=== PATIENT | female | born 1950 | race Caucasian/White ===

== ENCOUNTER → 2019-02-04 | Outpatient (CLI) | payer MEDICARE, MEDICAID ==
[~2019-02-04] MED LIST: AML5T PO; ATEN-60 PO; ATOR1TAB PO; CHOL1000T PO; ESCI10TA PO; FERR-20 PO; GABA-339 PO; HYDR-392 PO; NORT25CA PO
[2019-02-04 16:34] LABS: Urine Blood Negative /uL (Negative); Urine Specific Gravity 1.008 (1.001-1.035)
[2019-02-04 16:38] LABS: Basophils # (auto) 0 uL; Basophils % (auto) 0.4 % (0.0-2.0); Eosinophils # (auto) 0.3 uL; Eosinophils % (auto) 3.4 % (0.0-7.0); Hematocrit 26.9 % (36.0-46.0); Lymphocytes # (auto) 1.9 uL; Lymphocytes % (auto) 22.9 % (10.0-50.0); Mean Corpuscular Hemoglobin 29.7 pg (28.0-32.0); Mean Corpuscular Hgb Conc. 33.6 g/dL (32.0-36.0); Mean Corpuscular Volume 88.3 fL (80.0-100.0); Monocytes # (auto) 0.7 uL; Monocytes % (auto) 8.7 % (0.0-12.0); Neutrophils # (auto) 5.5 uL; Neutrophils % (auto) 64.6 % (37.0-80.0); Platelet Count (auto) 205 10^3/uL (140-450); Red Blood Cells 3.05 10^6/uL (4.0-5.20); Red Cell Distribution Width 15.5 % (11.8-14.3); White Blood Cell 8.5 10^3/uL (4.4-10.8)
[2019-02-04 16:53] LABS: Albumin 3.7 g/dL (3.4-5.0); Calcium 9.2 mg/dL (8.5-10.1); Potassium 3.2 mmol/L (3.5-5.1)
[2019-02-04 16:58] LABS: BUN/Creatinine Ratio 12.8; Bilirubin, Total 0.6 mg/dL (0.2-1.0); Total Protein 7.2 g/dL (6.4-8.2)
[2019-02-04 17:03] LABS: Folate (Folic Acid) > 24.00 ng/mL (5.38-24)
== END | disposition home or self-care (01) ==
LOC: LAB 16:03
PROVIDERS: ATTEND Internal Medicine
DX: D64.9 Anemia, unspecified (principal); E78.5 Hyperlipidemia, unspecified; I13.0 Hypertensive heart and chronic kidney disease with heart failure and stage 1 through stage 4 chronic kidney disease, or unspecified chronic kidney disease; E11.22 Type 2 diabetes mellitus with diabetic chronic kidney disease; I50.9 Heart failure, unspecified; N18.3 Chronic kidney disease, stage 3 (moderate); R82.998 Other abnormal findings in urine
CPT/HCPCS: 36415; 80053; 80061; 81003; 82043; 82607; 82746; 85025; 87086; 87088; 87186

== ENCOUNTER → 2019-02-19 | Outpatient (CLI) | payer MEDICARE, MEDICAID ==
[2019-02-19 08:56] LABS: Basophils # (auto) 0.1 uL; Basophils % (auto) 0.8 % (0.0-2.0); Eosinophils # (auto) 0.2 uL; Hematocrit 28.9 % (36.0-46.0); Hemoglobin 9.7 g/dL (12.2-16.2); Lymphocytes # (auto) 1.4 uL; Lymphocytes % (auto) 18.9 % (10.0-50.0); Mean Corpuscular Hemoglobin 29.9 pg (28.0-32.0); Mean Corpuscular Hgb Conc. 33.4 g/dL (32.0-36.0); Mean Corpuscular Volume 89.3 fL (80.0-100.0); Monocytes # (auto) 0.8 uL; Monocytes % (auto) 10.5 % (0.0-12.0); Neutrophils # (auto) 5.1 uL; Neutrophils % (auto) 66.8 % (37.0-80.0); Platelet Count (auto) 263 10^3/uL (140-450); Red Blood Cells 3.23 10^6/uL (4.0-5.20); Red Cell Distribution Width 15.9 % (11.8-14.3); Urine Blood Negative /uL (Negative); Urine Specific Gravity 1.009 (1.001-1.035); White Blood Cell 7.7 10^3/uL (4.4-10.8)
[2019-02-19 09:15] LABS: Creatinine, Urine 47 mg/dL (30.0-125.0); Protein, Urine 55.3 mg/dL (0.0-11.9)
[2019-02-19 11:02] LABS: Albumin 3.7 g/dL (3.4-5.0); Calcium 9.1 mg/dL (8.5-10.1); Potassium 3.6 mmol/L (3.5-5.1)
[2019-02-19 11:09] LABS: BUN/Creatinine Ratio 11.4; Phosphorus 3.7 mg/dL (2.5-4.90); Uric Acid 6.8 mg/dL (2.6-6.0)
== END | disposition home or self-care (01) ==
LOC: LAB 08:09
PROVIDERS: ATTEND Internal Medicine Nephrology
DX: N39.0 Urinary tract infection, site not specified (principal); M10.9 Gout, unspecified; I13.0 Hypertensive heart and chronic kidney disease with heart failure and stage 1 through stage 4 chronic kidney disease, or unspecified chronic kidney disease; I50.43 Acute on chronic combined systolic (congestive) and diastolic (congestive) heart failure; D63.1 Anemia in chronic kidney disease; N18.3 Chronic kidney disease, stage 3 (moderate); E78.5 Hyperlipidemia, unspecified; E55.9 Vitamin D deficiency, unspecified; R80.9 Proteinuria, unspecified; E21.3 Hyperparathyroidism, unspecified
CPT/HCPCS: 36415; 80061; 80069; 81003; 82306; 82570; 84156; 84550; 85025

== ENCOUNTER 2019-09-10 11:59 | Emergency (ER) | payer MEDICARE, MEDICAID ==
[~2019-09-10] VITALS: Ht 162.6 cm; Wt 61.2 kg
[~2019-09-10 11:59] MED LIST changes: -CHOL1000T PO; +[UNRECOGNIZED DRUG - CODE] PO
[2019-09-10] MEDS ORDERED: ONDANSETRON HCL 4 MG/2 ML VIAL IV ONE (12:30)
[2019-09-10 14:19] LABS: Albumin 2.7 g/dL (3.4-5.0); Calcium 9.7 mg/dL (8.5-10.1); Magnesium 2.1 mg/dL (1.6-2.6)
[2019-09-10 14:23] LABS: Bilirubin, Total 0.3 mg/dL (0.2-1.0); Total Protein 6.5 g/dL (6.4-8.2)
[2019-09-10 14:26] LABS: BUN/Creatinine Ratio 11.6; Potassium 5.7 mmol/L (3.5-5.1)
[2019-09-10] MEDS ORDERED: SODIUM ZIRCONIUM CYCL 10 GM PAK PO ONE ×2 (15:00→15:15)
[2019-09-10] MEDS ORDERED: FUROSEMIDE 40 MG/4 ML VIAL IV ONE (15:00)
[2019-09-10] MEDS ORDERED: SODIUM CHLORIDE 0.9% 500 ML IV ONE (15:00)
[2019-09-10] MEDS ORDERED: InsuLIN REG 1unit/0.01ml Soln (100units/ml) SC ONE (15:00)
[2019-09-10] MEDS ORDERED: DEXTROSE (50%) 50ML SYRG IV ONE (15:00)
[2019-09-10] MEDS ORDERED: CLINDAMYCIN 900MG IV 50 ML IV ONE (15:15)
[2019-09-10] MEDS ORDERED: LEVOFLOXACIN 250MG 50 ML IV ONE (15:15)
[2019-09-10] MEDS ORDERED: SODIUM BICARBONATE 8.4 % INJ 50ML VIAL IV ONE (19:30)
[2019-09-10] MEDS ORDERED: CALCIUM CHL 100MG/ML 500 MG in D5W 5% 100 ML IV ONE (19:30)
[2019-09-10 20:42] LABS: Basophils # (auto) 0.1 uL; Basophils % (auto) 0.5 % (0.0-2.0); Eosinophils # (auto) 0 uL; Eosinophils % (auto) 0.1 % (0.0-7.0); Hematocrit 29.2 % (36.0-46.0); Hemoglobin 9.1 g/dL (12.2-16.2); Lymphocytes # (auto) 2.4 uL; Lymphocytes % (auto) 9.9 % (10.0-50.0); Mean Corpuscular Hemoglobin 28.9 pg (28.0-32.0); Mean Corpuscular Hgb Conc. 31.1 g/dL (32.0-36.0); Monocytes # (auto) 2.7 uL; Neutrophils # (auto) 19.4 uL; Neutrophils % (auto) 78.5 % (37.0-80.0); Nucleated Red Blood Cells % 0.1 %; Platelet Count (auto) 238 10^3/uL (140-450); Red Blood Cells 3.14 10^6/uL (4.0-5.20); Red Cell Distribution Width 15.9 % (11.8-14.3); White Blood Cell 24.7 10^3/uL (4.4-10.8)
[2019-09-10 21:30] VITALS: BP 140/61
== END 2019-09-10 21:42 | disposition short-term general hospital (02) ==
LOC: ER 11:59 → EDBD 11:59 → ER 21:42
DX: I13.2 Hypertensive heart and chronic kidney disease with heart failure and with stage 5 chronic kidney disease, or end stage renal disease (principal); E11.22 Type 2 diabetes mellitus with diabetic chronic kidney disease; N18.6 End stage renal disease; I50.9 Heart failure, unspecified; E87.5 Hyperkalemia; M86.9 Osteomyelitis, unspecified; R11.2 Nausea with vomiting, unspecified; J44.9 Chronic obstructive pulmonary disease, unspecified; I25.2 Old myocardial infarction
CPT/HCPCS: 36415; 71045; 74176; 80053; 83690; 83735; 84484; 85025; 93005; 96361; 96365; 96367; 96368; 96372; 99285; J1815; J1940; J1956; J2405; J3490; J7040; J7042; J7060

== ENCOUNTER 2020-02-18 16:42 | Inpatient (IN) | payer MEDICARE, MEDICAID ==
[~2020-02-18] VITALS: Ht 157.5 cm; Wt 85.9 kg
[2020-02-18 17:43] LABS: Basophils # (auto) 0.1 10 ^3/uL (0-0.2); Basophils % (auto) 0.7 % (0.0-2.0); Eosinophils # (auto) 0.2 10 ^3/uL (0-0.8); Hematocrit 36.2 % (36.0-46.0); Hemoglobin 11.5 g/dL (12.2-16.2); Lymphocytes # (auto) 1.3 10 ^3/uL (0.4-5.4); Lymphocytes % (auto) 17.2 % (10.0-50.0); Mean Corpuscular Hemoglobin 30.1 pg (28.0-32.0); Mean Corpuscular Hgb Conc. 31.7 g/dL (32.0-36.0); Monocytes # (auto) 0.8 10 ^3/uL (0-1.3); Monocytes % (auto) 11.1 % (0.0-12.0); Neutrophils # (auto) 5.1 10 ^3/uL (1.6-8.6); Nucleated Red Blood Cells % 0.1 %; Platelet Count (auto) 174 10^3/uL (140-450); Red Blood Cells 3.81 10^6/uL (4.0-5.20); Red Cell Distribution Width 16.7 % (11.8-14.3); White Blood Cell 7.5 10^3/uL (4.4-10.8)
[2020-02-18 18:00] LABS: Albumin 3.2 g/dL (3.4-5.0); Calcium 8.9 mg/dL (8.5-10.1)
[2020-02-18 18:05] LABS: BUN/Creatinine Ratio 9.9; Bilirubin, Total 0.4 mg/dL (0.2-1.0); Total Protein 7.3 g/dL (6.4-8.2)
[2020-02-18 18:12] LABS: Potassium 6.2 mmol/L (3.5-5.1)
[2020-02-18] MEDS ORDERED: SODIUM BICARBONATE 8.4 % INJ 50ML VIAL IV ONE (18:45)
[2020-02-18] MEDS ORDERED: ALBUTEROL SULF 2.5 MG/0.5ML(0.5%) NEB SOLN HHN ONE (18:45)
[2020-02-18] MEDS ORDERED: CALCIUM GLUC 4.65meq/50ml D5AE 50 ML IV ONE (18:45)
[2020-02-18] MEDS ORDERED: InsuLIN REG 1unit/0.01ml Soln (100units/ml) IV ONE (19:45)
[2020-02-18] MEDS ORDERED: SODIUM ZIRCONIUM CYCL 10 GM PAK PO ONE (19:45)
[2020-02-18] MEDS ORDERED: DEXTROSE (50%) 50ML SYRG IV ONE (19:45)
[2020-02-18] MEDS ORDERED: FUROSEMIDE 100 MG/10ML VIAL IV ONE (20:00)
[2020-02-18] MEDS ORDERED: SODIUM BICARBONATE 8.4% INJ 50ML SYRINGE ONE (20:00)
[2020-02-18] MEDS ORDERED: HYDROcodone-ACET 7.5/325MG TAB PO PRN (20:00)
[2020-02-18] MEDS ORDERED: MORPHINE SULF INJ 2 MG/ML SYRINGE 1ML IV PRN (20:00)
[2020-02-18] MEDS ORDERED: NITROGLYCERIN 0.4 MG SL TAB SL PRN (20:00)
[2020-02-18] MEDS ORDERED: FUROSEMIDE 40 MG/4 ML VIAL ONE (20:01)
[2020-02-18 22:00] VITALS: BP 139/66
[2020-02-18] MEDS ORDERED: ATORVASTATIN 20 MG TAB PO SCH (22:00)
[2020-02-18] MEDS ORDERED: GABAPENTIN 300 MG CAP PO SCH (22:00)
[2020-02-18] MEDS ORDERED: FAMOTIDINE 20 MG TAB PO SCH (22:00)
[2020-02-18] MEDS ORDERED: NORTRIPTYLINE HCL 25 MG CAP PO SCH (22:00)
[2020-02-18 23:46] LABS: Anion Gap 12 (5-15); BUN/Creatinine Ratio 9.9; Blood Urea Nitrogen 50 mg/dL (7-18); Calcium 8.3 mg/dL (8.5-10.1); Carbon Dioxide 20 mmol/L (21-32); Chloride 104 mmol/L (98-107); GFR African American 11 mL/min; GFR Non-African American 9 mL/min; Glucose 172 mg/dL (74-106); Potassium 4.7 mmol/L (3.5-5.1); Sodium 136 mmol/L (136-145)
[2020-02-19] VITALS (7 sets, daily range): BP systolic 96–157; BP diastolic 52–79
[2020-02-19 06:45] LABS: Potassium 5.2 mmol/L (3.5-5.1)
[2020-02-19 06:49] LABS: Albumin 3.1 g/dL (3.4-5.0); BUN/Creatinine Ratio 11.1; Bilirubin, Total 0.6 mg/dL (0.2-1.0); Calcium 8.7 mg/dL (8.5-10.1); Total Protein 7.2 g/dL (6.4-8.2)
[2020-02-19] MEDS: FERROUS SULFATE 325 MG TAB PO SCH ×2 (07:45→17:46)
[2020-02-19] MEDS: CHOLECALCIFEROL (VITD3) 1,000IU=25mCg TAB PO SCH (09:26)
[2020-02-19] MEDS: ATENOLOL 25 MG TAB PO SCH (09:26)
[2020-02-19] MEDS: amLODIPine BESYLATE 5 MG TAB PO SCH (09:26)
[2020-02-19] MEDS ORDERED: ESCITALOPRAM OXALATE 10 MG PO SCH (10:00)
[2020-02-19] MEDS ORDERED: SODIUM CHL 0.9% 1000 ML BAG XX ONE (13:45)
[2020-02-19] MEDS ORDERED: ASP81EC PO (14:09)
[2020-02-19] MEDS ORDERED: POTA1TAB61 PO (14:18)
[2020-02-19] MEDS ORDERED: HYDR-4833 PO (14:18)
[2020-02-19] MEDS ORDERED: GABA300C10 PO (14:18)
[2020-02-19] MEDS ORDERED: NORT25CA PO (14:18)
[2020-02-19] MEDS ORDERED: FURO1TAB31 PO (14:18)
[2020-02-19] MEDS ORDERED: TOPI25CA5 PO (14:18)
[2020-02-19] MEDS ORDERED: ATOR1TAB PO (14:18)
[2020-02-19] MEDS ORDERED: METO25TA93 PO (14:18)
[2020-02-19] MEDS ORDERED: SEVE800T8 PO (14:18)
[2020-02-19] MEDS ORDERED: LOSA-39 PO (14:18)
[2020-02-19] MEDS ORDERED: AMLO5TAB15 PO (14:18)
[2020-02-19 15:06] LABS: Calcium 8.4 mg/dL (8.5-10.1)
[2020-02-19 15:09] LABS: BUN/Creatinine Ratio 11.1; Bilirubin, Total 0.5 mg/dL (0.2-1.0); Total Protein 7.3 g/dL (6.4-8.2)
[2020-02-19 18:34] LABS: Potassium 6.1 mmol/L (3.5-5.1)
[2020-02-19] MEDS ORDERED: DEXTROSE (50%) 50ML SYRG IV ONE (19:15)
[2020-02-19] MEDS ORDERED: FUROSEMIDE 40 MG/4 ML VIAL IV ONE (19:15)
[2020-02-19] MEDS ORDERED: InsuLIN REG 1unit/0.01ml Soln (100units/ml) IV ONE (19:15)
[2020-02-19] MEDS ORDERED: SODIUM BICARBONATE 8.4% INJ 50ML SYRINGE IV ONE (19:15)
[2020-02-19] MEDS ORDERED: SODIUM ZIRCONIUM CYCL 10 GM PAK PO ONE (19:45)
[2020-02-19] MEDS ORDERED: EPOETIN ALFA 10,000 UNIT/1 ML VIAL SC ONE (21:00)
[2020-02-19 21:19] LABS: Creatine Kinase IFCC 59 U/L (26-192); Lactate Dehydrogenase 658 U/L (84-246)
[2020-02-20 05:00] VITALS: BP 125/66
[2020-02-20 07:20] LABS: Albumin 3.2 g/dL (3.4-5.0); Calcium 8.8 mg/dL (8.5-10.1); Potassium 4.6 mmol/L (3.5-5.1)
[2020-02-20 07:25] LABS: BUN/Creatinine Ratio 9.6; Bilirubin, Total 0.5 mg/dL (0.2-1.0); Total Protein 7.4 g/dL (6.4-8.2)
[2020-02-20] MEDS: FERROUS SULFATE 325 MG TAB PO SCH ×2 (08:06→17:17)
[2020-02-20 08:54] VITALS: BP 91/54
[2020-02-20] MEDS: CHOLECALCIFEROL (VITD3) 1,000IU=25mCg TAB PO SCH (09:51)
[2020-02-20] MEDS: ATENOLOL 25 MG TAB PO SCH (09:52)
[2020-02-20] MEDS: amLODIPine BESYLATE 5 MG TAB PO SCH (09:52)
[2020-02-20 13:00] VITALS: BP 97/64
[2020-02-20] MEDS: PANTOPRAZOLE 40 MG TAB PO SCH (13:33)
[2020-02-20 17:29] VITALS: BP 110/59
[2020-02-20 22:00] VITALS: BP 96/53
[2020-02-21 05:00] VITALS: BP 143/60
[2020-02-21 06:21] LABS: Potassium 4.6 mmol/L (3.5-5.1)
[2020-02-21 06:29] LABS: Albumin 3.1 g/dL (3.4-5.0); BUN/Creatinine Ratio 9.3; Bilirubin, Total 0.5 mg/dL (0.2-1.0); Calcium 8.7 mg/dL (8.5-10.1); Total Protein 7.4 g/dL (6.4-8.2)
[2020-02-21 09:00] VITALS: BP 160/70
[2020-02-21] MEDS: CHOLECALCIFEROL (VITD3) 1,000IU=25mCg TAB PO SCH (09:56)
[2020-02-21] MEDS: PANTOPRAZOLE 40 MG TAB PO SCH (09:56)
[2020-02-21] MEDS: ATENOLOL 25 MG TAB PO SCH (09:57)
[2020-02-21] MEDS: amLODIPine BESYLATE 5 MG TAB PO SCH (09:57)
[2020-02-21] MEDS: FERROUS SULFATE 325 MG TAB PO SCH ×2 (09:58→18:00)
[2020-02-21 13:00] VITALS: BP 130/59
[2020-02-21 13:16] LABS: Hepatitis A Ab IgM Negative; Hepatitis B Core IgM Negative; Hepatitis B Surface Antigen Negative (Negative); Hepatitis C Antibody Negative (Negative)
[2020-02-21 17:00] VITALS: BP 118/60
== END 2020-02-21 18:00 | disposition home or self-care (01) | DRG 640 ==
LOC: ER 16:42 → TELE 16:43 → TELE-CENTR 20:55
PROVIDERS: ADMIT Internal Medicine; ATTEND Family Medicine
PROC: 5A1D70Z Performance of Urinary Filtration, Intermittent, Less than 6 Hours Per Day (ICD-10-PCS; principal; 2020-02-19)
DX: E87.5 Hyperkalemia (principal); N18.6 End stage renal disease; I13.2 Hypertensive heart and chronic kidney disease with heart failure and with stage 5 chronic kidney disease, or end stage renal disease; I50.32 Chronic diastolic (congestive) heart failure; E78.5 Hyperlipidemia, unspecified; J44.9 Chronic obstructive pulmonary disease, unspecified; D64.9 Anemia, unspecified; E78.00 Pure hypercholesterolemia, unspecified; R74.8 Abnormal levels of other serum enzymes; E11.22 Type 2 diabetes mellitus with diabetic chronic kidney disease; Z80.1 Family history of malignant neoplasm of trachea, bronchus and lung; Z99.2 Dependence on renal dialysis; Z95.2 Presence of prosthetic heart valve; Z90.49 Acquired absence of other specified parts of digestive tract; Z82.49 Family history of ischemic heart disease and other diseases of the circulatory system; I25.2 Old myocardial infarction; Z87.440 Personal history of urinary (tract) infections; Z90.89 Acquired absence of other organs; Z98.51 Tubal ligation status; Z79.899 Other long term (current) drug therapy
CPT/HCPCS: 36415; 71045; 76705; 80048; 80053; 80074; 82550; 83615; 83880; 85025; 87081; 90935; 93005; 94644; 99291; G0378; J0610; J0885; J1642; J1815

== ENCOUNTER → 2020-02-24 | Outpatient (CLI) | payer MEDICARE, MEDICAID ==
[~2020-02-24] MED LIST changes: -AML5T PO; +AMLO5TAB15 PO; +ASPI-394 PO; -ATEN-60 PO; +FURO1TAB31 PO; -GABA-339 PO; +GABA300C10 PO; -HYDR-392 PO; +HYDR-4833 PO; +LOSA-39 PO; +METO25TA93 PO; +POTA1TAB61 PO; +SEVE800T8 PO; +TOPI25CA5 PO; +[UNRECOGNIZED DRUG - CODE] PO; -[UNRECOGNIZED DRUG - CODE] PO
[2020-02-24 10:52] LABS: Potassium 3.4 mmol/L (3.5-5.1)
[2020-02-24 10:58] LABS: Albumin 3.2 g/dL (3.4-5.0); BUN/Creatinine Ratio 8.4; Bilirubin, Total 0.5 mg/dL (0.2-1.0); Calcium 8.1 mg/dL (8.5-10.1); Total Protein 7.6 g/dL (6.4-8.2)
== END | disposition home or self-care (01) ==
LOC: LAB 10:09
PROVIDERS: ATTEND Family Medicine
DX: R74.8 Abnormal levels of other serum enzymes (principal)
CPT/HCPCS: 36415; 80053

== ENCOUNTER → 2020-05-10 | Outpatient (CLI) | payer MEDICARE, MEDICAID ==
[2020-05-10 14:16] LABS: Urine Bacteria FEW /hpf (None Seen); Urine Blood 1+ /uL (Negative); Urine WBC 419 /hpf (0 - 5); Urine WBC Clumps PRESENT /hpf (None Seen)
[2020-05-10 14:23] LABS: Albumin 3.2 g/dL (3.4-5.0); Bilirubin, Direct 0.2 mg/dL (0-0.2)
[2020-05-10 14:26] LABS: Bilirubin, Total 0.5 mg/dL (0.2-1.0)
== END | disposition home or self-care (01) ==
LOC: LAB 13:18
PROVIDERS: ATTEND Internal Medicine Gastroenterology
DX: R94.5 Abnormal results of liver function studies (principal); R35.0 Frequency of micturition
CPT/HCPCS: 36415; 80076; 81001; 87086

== ENCOUNTER → 2020-10-31 | Outpatient (CLI) | payer MEDICARE, MEDICAID ==
[~2020-10-31] MED LIST changes: +AMLO-489 PO; -AMLO5TAB15 PO; +ATOR-47 PO; -ATOR1TAB PO; +[UNRECOGNIZED DRUG - CODE] PO; -[UNRECOGNIZED DRUG - CODE] PO
== END | disposition home or self-care (01) ==
LOC: LAB 15:39
PROVIDERS: ATTEND Nurse Practitioner Family
DX: Z20.822 Contact with and (suspected) exposure to COVID-19 (principal)
CPT/HCPCS: C9803; U0003

== ENCOUNTER 2020-12-12 14:11 | Inpatient (IN) | payer MEDICARE, MEDICAID ==
[~2020-12-12] VITALS: Ht 157.5 cm; Wt 92.2 kg
[2020-12-12] MEDS ORDERED: cefTRIAXone 1GM/50ML D5W 50 ML IV ONE (14:45)
[2020-12-12] MEDS ORDERED: CLINDAMYCIN 600MG IV 50 ML IV ONE (14:45)
[2020-12-12 14:53] LABS: Basophils # (auto) 0.1 10 ^3/uL (0-0.2); Basophils % (auto) 1.1 % (0.0-2.0); Eosinophils # (auto) 0.4 10 ^3/uL (0-0.8); Eosinophils % (auto) 4.1 % (0.0-7.0); Hematocrit 27.6 % (36.0-46.0); Lymphocytes # (auto) 0.9 10 ^3/uL (0.4-5.4); Lymphocytes % (auto) 8.9 % (10.0-50.0); Mean Corpuscular Hemoglobin 31.5 pg (28.0-32.0); Mean Corpuscular Hgb Conc. 32.5 g/dL (32.0-36.0); Mean Corpuscular Volume 96.9 fL (80.0-100.0); Monocytes # (auto) 0.9 10 ^3/uL (0-1.3); Monocytes % (auto) 9.3 % (0.0-12.0); Neutrophils # (auto) 7.4 10 ^3/uL (1.6-8.6); Neutrophils % (auto) 76.6 % (37.0-80.0); Platelet Count (auto) 318 10^3/uL (140-450); Red Blood Cells 2.85 10^6/uL (4.0-5.20); Red Cell Distribution Width 16.4 % (11.8-14.3); White Blood Cell 9.7 10^3/uL (4.4-10.8)
[2020-12-12 14:59] LABS: Partial Thromboplastin Time 29.8 sec (23.0-31.2)
[2020-12-12 15:05] LABS: Albumin 2.9 g/dL (3.4-5.0); BUN/Creatinine Ratio 6.1; Calcium 7.5 mg/dL (8.5-10.1); Potassium 4.3 mmol/L (3.5-5.1)
[2020-12-12 15:09] LABS: Bilirubin, Total 0.7 mg/dL (0.2-1.0); Total Protein 7.4 g/dL (6.4-8.2)
[2020-12-12] MEDS ORDERED: ONDANSETRON HCL 4 MG/2 ML VIAL IV ONE (16:30)
[2020-12-12] MEDS ORDERED: HYDROmorphone HCL 2 MG/ML VL IV ONE (16:30)
[2020-12-12] MEDS ORDERED: PIPERACILLIN-TAZOB 3.375GM 100 ML IV SCH (16:45)
[2020-12-12] MEDS ORDERED: MORPHINE SULF INJ 2 MG/ML SYRINGE 1ML IV PRN (16:45)
[2020-12-12] MEDS ORDERED: NITROGLYCERIN 0.4 MG SL TAB SL PRN (16:45)
[2020-12-12] MEDS ORDERED: FUROSEMIDE 100 MG/10ML VIAL IV ONE (16:45)
[2020-12-12] MEDS ORDERED: DOCUSATE SOD 100 MG CAP PO PRN (16:45)
[2020-12-12] MEDS ORDERED: PIPERACILLIN-TAZOB 3.375GM 100 ML IV ONE (16:45)
[2020-12-12] MEDS ORDERED: ACETAMINOPHEN 325 MG TAB PO PRN (16:45)
[2020-12-12] MEDS ORDERED: TEMAZEPAM 15 MG CAP PO PRN (16:45)
[2020-12-12] MEDS ORDERED: ESCI-34 PO (17:20)
[2020-12-12] MEDS ORDERED: NORT50CA57 PO (17:20)
[2020-12-12] MEDS ORDERED: LOSA25TA38 PO (17:20)
[2020-12-12] MEDS ORDERED: OMEP-260 PO (17:41)
[2020-12-12] MEDS ORDERED: B-CO-6 PO (17:41)
[2020-12-12] MEDS ORDERED: SUCR5CHW PO (17:41)
[2020-12-12] MEDS: HYDROcodone-ACET 5/325MG TAB PO PRN (19:37)
[2020-12-12 21:00] VITALS: BP 129/66
[2020-12-12] MEDS: HYDROmorphone HCL 2 MG/ML VL IV PRN (21:54)
[2020-12-12] MEDS: SODIUM CHLOR 0.9% PF (SALINE LOCK) 10ML VIAL/SYR IV SCH (21:55)
[2020-12-12 23:00] VITALS: BP 126/61
[2020-12-13] VITALS (7 sets, daily range): BP systolic 111–149; BP diastolic 59–77
[2020-12-13] MEDS: SODIUM CHLOR 0.9% PF (SALINE LOCK) 10ML VIAL/SYR IV SCH ×3 (06:01→21:29)
[2020-12-13] MEDS: HYDROmorphone HCL 2 MG/ML VL IV PRN ×2 (07:48→22:22)
[2020-12-13] MEDS: ONDANSETRON HCL 4 MG/2 ML VIAL IV PRN (07:48)
[2020-12-13] MEDS ORDERED: PIPERACILLIN-TAZOB 0.75 GM in D5W 5% 50 ML IV PRN (09:30)
[2020-12-13] MEDS: PIPERACILLIN-TAZOB 2.25GM 50 ML IV SCH ×2 (09:38→21:29)
[2020-12-13] MEDS ORDERED: PIPERACILLIN-TAZOB 2.25GM 50 ML IV SCH (10:00)
[2020-12-13] MEDS ORDERED: OPTISON 3ml Vial for INJ IV ONE (11:24)
[2020-12-13] MEDS: HYDROcodone-ACET 5/325MG TAB PO PRN (14:19)
[2020-12-13 16:02] LABS: Urine Bacteria NONE SEEN /hpf (None Seen); Urine Blood Negative /uL (Negative); Urine Specific Gravity 1.012 (1.001-1.035); Urine WBC <1 /hpf (0 - 5)
[2020-12-14] MEDS: HYDROmorphone HCL 2 MG/ML VL IV PRN ×2 (06:11→20:45)
[2020-12-14] MEDS: SODIUM CHLOR 0.9% PF (SALINE LOCK) 10ML VIAL/SYR IV SCH ×3 (06:11→22:15)
[2020-12-14] MEDS: ONDANSETRON HCL 4 MG/2 ML VIAL IV PRN (06:12)
[2020-12-14 06:14] VITALS: BP 145/68
[2020-12-14] MEDS: PIPERACILLIN-TAZOB 2.25GM 50 ML IV SCH ×2 (08:50→22:15)
[2020-12-14 09:00] VITALS: BP 130/71
[2020-12-14] MEDS ORDERED: ceFAZolin 1GM VL ONE (10:30)
[2020-12-14] MEDS ORDERED: fentaNYL CITRATE 100 MCG/2 ML VL ONE ×2 (11:03→11:28)
[2020-12-14] MEDS ORDERED: MIDAZOLAM HCL 1MG/1ML-2 ML VIAL ONE (11:03)
[2020-12-14] MEDS ORDERED: LIDOCAINE HCL (LOCAL ANESTH.) 0.5 % 50ML MDV IJ ONE (11:23)
[2020-12-14] MEDS: LIDOCAINE 1% HCL (LOCAL ANESTH.) INJ 20ML MDV ONE ×2 (11:24→11:52)
[2020-12-14] MEDS ORDERED: diphenhdrAMINE HCL 50 MG/1 ML VL ONE (11:35)
[2020-12-14] MEDS ORDERED: ONDANSETRON HCL 4 MG/2 ML VIAL ONE (11:35)
[2020-12-14] MEDS ORDERED: METOCLOPRAMIDE HCL 5MG/ml INJ 2ml VIAL ONE (11:35)
[2020-12-14] MEDS ORDERED: HEPARIN SODIUM (PORCINE) 5000 UNITS/ML 1ML VIAL ONE (11:36)
[2020-12-14] MEDS ORDERED: HYDROmorphone HCL 2 MG/ML VL IV PRN (12:15)
[2020-12-14] MEDS ORDERED: ONDANSETRON HCL 4 MG/2 ML VIAL IV PRN (12:15)
[2020-12-14] MEDS: HYDROcodone-ACET 5/325MG TAB PO PRN ×2 (13:41→14:48)
[2020-12-14 16:52] VITALS: BP 101/54
[2020-12-14 22:00] VITALS: BP 125/61
[2020-12-15 05:00] VITALS: BP 134/47
[2020-12-15] MEDS ORDERED: SODIUM CHL 0.9% 1000 ML BAG XX ONE (07:00)
[2020-12-15 08:00] VITALS: BP 175/76
[2020-12-15] MEDS: HYDROmorphone HCL 2 MG/ML VL IV PRN (09:05)
[2020-12-15 09:31] VITALS: BP 175/76
[2020-12-15] MEDS: PIPERACILLIN-TAZOB 2.25GM 50 ML IV SCH ×2 (10:45→22:27)
[2020-12-15] MEDS: SODIUM CHLOR 0.9% PF (SALINE LOCK) 10ML VIAL/SYR IV SCH ×3 (10:45→22:27)
[2020-12-15 14:26] VITALS: BP 115/56
[2020-12-15 16:27] VITALS: BP 133/64
[2020-12-15] MEDS ORDERED: EPOETIN ALFA-EPBX 10,000 UNIT/1ML VIAL SC ONE (21:00)
[2020-12-15 22:00] VITALS: BP 128/68
[2020-12-16 05:00] VITALS: BP 140/57
[2020-12-16] MEDS: SODIUM CHLOR 0.9% PF (SALINE LOCK) 10ML VIAL/SYR IV SCH ×3 (06:00→22:06)
[2020-12-16 08:52] VITALS: BP 150/70
[2020-12-16] MEDS: PIPERACILLIN-TAZOB 2.25GM 50 ML IV SCH ×2 (10:57→22:07)
[2020-12-16 12:33] VITALS: BP 147/63
[2020-12-16] MEDS: HYDROmorphone HCL 2 MG/ML VL IV PRN ×2 (12:57→20:56)
[2020-12-16 16:35] VITALS: BP 137/55
[2020-12-16] MEDS: ONDANSETRON HCL 4 MG/2 ML VIAL IV PRN (20:56)
[2020-12-16 22:00] VITALS: BP 138/63
[2020-12-17 05:00] VITALS: BP 149/75
[2020-12-17] MEDS: SODIUM CHLOR 0.9% PF (SALINE LOCK) 10ML VIAL/SYR IV SCH ×3 (05:32→21:33)
[2020-12-17] MEDS: HYDROmorphone HCL 2 MG/ML VL IV PRN ×4 (05:32→20:44)
[2020-12-17] MEDS: PIPERACILLIN-TAZOB 2.25GM 50 ML IV SCH ×3 (05:53→21:31)
[2020-12-17 08:00] VITALS: BP 158/71
[2020-12-17] MEDS: FLORASTOR (S. BOULARDII) 250 MG CAP PO SCH (11:18)
[2020-12-17] MEDS: ENOXAPARIN SOD 30 MG/0.3 ML SYRINGE SC SCH (11:18)
[2020-12-17 12:00] VITALS: BP 157/69
[2020-12-17] MEDS ORDERED: LOSARTAN POTASSIUM 25 MG TAB PO ONE (13:00)
[2020-12-17 16:00] VITALS: BP 141/68
[2020-12-17 22:00] VITALS: BP 147/65
[2020-12-18 05:00] VITALS: BP_SYST 149; BP_SYST 174; BP_DIAS 70; BP_DIAS 76
[2020-12-18] MEDS: PIPERACILLIN-TAZOB 2.25GM 50 ML IV SCH ×3 (05:34→21:33)
[2020-12-18] MEDS: SODIUM CHLOR 0.9% PF (SALINE LOCK) 10ML VIAL/SYR IV SCH ×5 (05:34→21:33)
[2020-12-18] MEDS: HYDROmorphone HCL 2 MG/ML VL IV PRN ×3 (06:41→21:10)
[2020-12-18] MEDS ORDERED: SODIUM CHL 0.9% 1000 ML BAG XX ONE (07:00)
[2020-12-18] MEDS ORDERED: IOHEXOL 350 MG/ML 100ML IJ ONE (07:21)
[2020-12-18 08:00] VITALS: BP_SYST 121; BP_SYST 141; BP_SYST 158; BP_DIAS 64; BP_DIAS 65; BP_DIAS 68
[2020-12-18] MEDS: ONDANSETRON HCL 4 MG/2 ML VIAL IV PRN (08:05)
[2020-12-18] MEDS: LOSARTAN POTASSIUM 25 MG TAB PO SCH (09:39)
[2020-12-18] MEDS: METOPROLOL SUCCINATE XL 50 MG TAB PO SCH (09:40)
[2020-12-18] MEDS: FLORASTOR (S. BOULARDII) 250 MG CAP PO SCH (09:40)
[2020-12-18] MEDS ORDERED: LIDOCAINE 2%HCL (LOCAL ANESTH.) INJ 20ML MDV ONE ×2 (09:40→10:31)
[2020-12-18] MEDS: ENOXAPARIN SOD 30 MG/0.3 ML SYRINGE SC SCH (09:41)
[2020-12-18] MEDS ORDERED: METOPROLOL SUCCINATE XL 50 MG TAB PO SCH (10:00)
[2020-12-18 10:01] LABS: Basophils # (auto) 0.1 10 ^3/uL (0-0.2); Basophils % (auto) 0.8 % (0.0-2.0); Eosinophils # (auto) 0.4 10 ^3/uL (0-0.8); Hematocrit 26.4 % (36.0-46.0); Hemoglobin 8.8 g/dL (12.2-16.2); Lymphocytes # (auto) 0.7 10 ^3/uL (0.4-5.4); Lymphocytes % (auto) 5.5 % (10.0-50.0); Mean Corpuscular Hemoglobin 31.5 pg (28.0-32.0); Mean Corpuscular Hgb Conc. 33.4 g/dL (32.0-36.0); Mean Corpuscular Volume 94.3 fL (80.0-100.0); Monocytes # (auto) 0.7 10 ^3/uL (0-1.3); Monocytes % (auto) 5.9 % (0.0-12.0); Neutrophils # (auto) 10.1 10 ^3/uL (1.6-8.6); Neutrophils % (auto) 84.8 % (37.0-80.0); Nucleated Red Blood Cells % 0.1 %; Platelet Count (auto) 306 10^3/uL (140-450); Red Cell Distribution Width 15.9 % (11.8-14.3); White Blood Cell 11.9 10^3/uL (4.4-10.8)
[2020-12-18 10:22] LABS: INR 1.04 (0.9-1.15)
[2020-12-18] MEDS ORDERED: fentaNYL CITRATE 100 MCG/2 ML VL ONE (10:31)
[2020-12-18] MEDS ORDERED: IODIXANOL 320MG/ML 100ML BTL IV ONE (10:31)
[2020-12-18] MEDS ORDERED: MIDAZOLAM HCL 1MG/1ML-2 ML VIAL ONE (10:31)
[2020-12-18 10:37] LABS: Albumin 2.5 g/dL (3.4-5.0); Calcium 8.2 mg/dL (8.5-10.1)
[2020-12-18 10:41] LABS: BUN/Creatinine Ratio 6.4; Bilirubin, Total 0.6 mg/dL (0.2-1.0); Total Protein 6.7 g/dL (6.4-8.2)
[2020-12-18 12:00] VITALS: BP 154/62
[2020-12-18] MEDS ORDERED: VANCOMYCIN PER PHARMACY 0 MG IV SCH (12:45)
[2020-12-18] MEDS ORDERED: VANCOMYCIN 1GM/250ML 250 ML IV ONE ×2 (13:15→17:00)
[2020-12-18 16:00] VITALS: BP 139/56
[2020-12-18] MEDS ORDERED: EPOETIN ALFA-EPBX 10,000 UNIT/1ML VIAL SC ONE (21:00)
[2020-12-18 22:00] VITALS: BP 129/58
[2020-12-19 05:00] VITALS: BP 134/60
[2020-12-19] MEDS: HYDROmorphone HCL 2 MG/ML VL IV PRN ×2 (05:14→11:19)
[2020-12-19] MEDS: PIPERACILLIN-TAZOB 2.25GM 50 ML IV SCH ×3 (05:21→21:54)
[2020-12-19] MEDS: ONDANSETRON HCL 4 MG/2 ML VIAL IV PRN ×2 (05:22→18:02)
[2020-12-19] MEDS: SODIUM CHLOR 0.9% PF (SALINE LOCK) 10ML VIAL/SYR IV SCH ×6 (06:00→21:59)
[2020-12-19 07:50] LABS: Basophils # (auto) 0.1 10 ^3/uL (0-0.2); Basophils % (auto) 0.8 % (0.0-2.0); Eosinophils # (auto) 0.5 10 ^3/uL (0-0.8); Eosinophils % (auto) 5.5 % (0.0-7.0); Hematocrit 28.8 % (36.0-46.0); Hemoglobin 9.6 g/dL (12.2-16.2); Lymphocytes # (auto) 0.7 10 ^3/uL (0.4-5.4); Lymphocytes % (auto) 7.6 % (10.0-50.0); Mean Corpuscular Hemoglobin 31.4 pg (28.0-32.0); Mean Corpuscular Hgb Conc. 33.3 g/dL (32.0-36.0); Mean Corpuscular Volume 94.3 fL (80.0-100.0); Monocytes # (auto) 0.8 10 ^3/uL (0-1.3); Monocytes % (auto) 9.4 % (0.0-12.0); Neutrophils # (auto) 6.9 10 ^3/uL (1.6-8.6); Neutrophils % (auto) 76.7 % (37.0-80.0); Nucleated Red Blood Cells % 0.1 %; Platelet Count (auto) 303 10^3/uL (140-450); Red Blood Cells 3.05 10^6/uL (4.0-5.20); Red Cell Distribution Width 15.8 % (11.8-14.3)
[2020-12-19 09:00] VITALS: BP 156/65
[2020-12-19] MEDS: LOSARTAN POTASSIUM 25 MG TAB PO SCH (10:28)
[2020-12-19] MEDS: FLORASTOR (S. BOULARDII) 250 MG CAP PO SCH (10:28)
[2020-12-19] MEDS: METOPROLOL SUCCINATE XL 50 MG TAB PO SCH (10:29)
[2020-12-19] MEDS: ENOXAPARIN SOD 30 MG/0.3 ML SYRINGE SC SCH (10:30)
[2020-12-19] MEDS: HYDROcodone-ACET 5/325MG TAB PO PRN ×2 (12:16→18:01)
[2020-12-19 13:31] VITALS: BP 138/56
[2020-12-19 16:51] VITALS: BP 146/53
[2020-12-19] MEDS: ALUM & MAG HYDROX-SIMETH LIQ(MAALOX) 30 ML PO PRN (21:54)
[2020-12-19 22:00] VITALS: BP 139/61
[2020-12-20] MEDS: ONDANSETRON HCL 4 MG/2 ML VIAL IV PRN (01:15)
[2020-12-20 05:00] VITALS: BP 153/61
[2020-12-20] MEDS: PIPERACILLIN-TAZOB 2.25GM 50 ML IV SCH ×3 (05:44→21:31)
[2020-12-20] MEDS: SODIUM CHLOR 0.9% PF (SALINE LOCK) 10ML VIAL/SYR IV SCH ×6 (05:44→21:30)
[2020-12-20] MEDS ORDERED: SODIUM CHL 0.9% 1000 ML BAG XX ONE (07:00)
[2020-12-20 07:53] LABS: Basophils # (auto) 0 10 ^3/uL (0-0.2); Basophils % (auto) 0.4 % (0.0-2.0); Eosinophils # (auto) 0.4 10 ^3/uL (0-0.8); Eosinophils % (auto) 3.8 % (0.0-7.0); Hematocrit 29.3 % (36.0-46.0); Hemoglobin 9.5 g/dL (12.2-16.2); Lymphocytes % (auto) 9.2 % (10.0-50.0); Mean Corpuscular Hemoglobin 30.4 pg (28.0-32.0); Mean Corpuscular Hgb Conc. 32.6 g/dL (32.0-36.0); Mean Corpuscular Volume 93.3 fL (80.0-100.0); Monocytes # (auto) 0.9 10 ^3/uL (0-1.3); Neutrophils # (auto) 8.7 10 ^3/uL (1.6-8.6); Neutrophils % (auto) 78.6 % (37.0-80.0); Platelet Count (auto) 303 10^3/uL (140-450); Red Blood Cells 3.14 10^6/uL (4.0-5.20); Red Cell Distribution Width 16.1 % (11.8-14.3); White Blood Cell 11.1 10^3/uL (4.4-10.8)
[2020-12-20 08:13] LABS: Calcium 7.9 mg/dL (8.5-10.1); Potassium 3.3 mmol/L (3.5-5.1)
[2020-12-20 08:14] LABS: BUN/Creatinine Ratio 5.5
[2020-12-20 09:00] VITALS: BP 153/66
[2020-12-20] MEDS: ENOXAPARIN SOD 30 MG/0.3 ML SYRINGE SC SCH (10:00)
[2020-12-20] MEDS: FLORASTOR (S. BOULARDII) 250 MG CAP PO SCH (10:00)
[2020-12-20] MEDS: METOPROLOL SUCCINATE XL 50 MG TAB PO SCH (10:00)
[2020-12-20] MEDS: LOSARTAN POTASSIUM 25 MG TAB PO SCH (10:00)
[2020-12-20 13:00] VITALS: BP 151/58
[2020-12-20] MEDS ORDERED: VANCOMYCIN 1GM/250ML 250 ML IV ONE (16:00)
[2020-12-20 16:59] VITALS: BP 170/72
[2020-12-20] MEDS: HYDROcodone-ACET 5/325MG TAB PO PRN (17:43)
[2020-12-20] MEDS ORDERED: EPOETIN ALFA-EPBX 10,000 UNIT/1ML VIAL SC ONE (21:00)
[2020-12-20] MEDS ORDERED: cloNIDine HCL 0.1 MG TAB ONE (21:22)
[2020-12-20 22:00] VITALS: BP 124/57
[2020-12-21 05:00] VITALS: BP 130/51
[2020-12-21] MEDS: SODIUM CHLOR 0.9% PF (SALINE LOCK) 10ML VIAL/SYR IV SCH ×4 (05:56→15:13)
[2020-12-21] MEDS: PIPERACILLIN-TAZOB 2.25GM 50 ML IV SCH ×2 (05:56→15:14)
[2020-12-21 07:26] LABS: Basophils # (auto) 0.1 10 ^3/uL (0-0.2); Basophils % (auto) 0.7 % (0.0-2.0); Eosinophils # (auto) 0.4 10 ^3/uL (0-0.8); Eosinophils % (auto) 3.5 % (0.0-7.0); Lymphocytes # (auto) 1.2 10 ^3/uL (0.4-5.4); Lymphocytes % (auto) 9.6 % (10.0-50.0); Mean Corpuscular Hemoglobin 30.9 pg (28.0-32.0); Mean Corpuscular Hgb Conc. 33.2 g/dL (32.0-36.0); Mean Corpuscular Volume 92.8 fL (80.0-100.0); Monocytes # (auto) 1.2 10 ^3/uL (0-1.3); Monocytes % (auto) 9.6 % (0.0-12.0); Neutrophils # (auto) 9.6 10 ^3/uL (1.6-8.6); Neutrophils % (auto) 76.6 % (37.0-80.0); Nucleated Red Blood Cells % 0.1 %; Platelet Count (auto) 337 10^3/uL (140-450); Red Blood Cells 3.23 10^6/uL (4.0-5.20); White Blood Cell 12.5 10^3/uL (4.4-10.8)
[2020-12-21 07:52] LABS: Calcium 8.8 mg/dL (8.5-10.1)
[2020-12-21 07:54] LABS: BUN/Creatinine Ratio 4.6
[2020-12-21 07:58] LABS: Potassium 2.9 mmol/L (3.5-5.1)
[2020-12-21] MEDS: HYDROcodone-ACET 5/325MG TAB PO PRN (08:17)
[2020-12-21 08:56] VITALS: BP 129/59
[2020-12-21] MEDS: ENOXAPARIN SOD 30 MG/0.3 ML SYRINGE SC SCH (09:36)
[2020-12-21] MEDS: FLORASTOR (S. BOULARDII) 250 MG CAP PO SCH (09:36)
[2020-12-21] MEDS: LOSARTAN POTASSIUM 25 MG TAB PO SCH (09:37)
[2020-12-21] MEDS: METOPROLOL SUCCINATE XL 50 MG TAB PO SCH (09:37)
[2020-12-21] MEDS ORDERED: POTASSIUM CHL 20 Meq TABLET PO ONE (11:30)
[2020-12-21 13:09] VITALS: BP 142/63
[2020-12-21] MEDS: ALUM & MAG HYDROX-SIMETH LIQ(MAALOX) 30 ML PO PRN (13:38)
[2020-12-21 15:02] VITALS: BP 129/59
[2020-12-21 16:23] VITALS: BP 131/52
[2020-12-22] MEDS ORDERED: SODIUM CHL 0.9% 1000 ML BAG XX ONE (07:00)
[2020-12-22] MEDS ORDERED: EPOETIN ALFA-EPBX 10,000 UNIT/1ML VIAL SC ONE (21:00)
== END 2020-12-21 20:45 | DRG 252 ==
LOC: ER 14:11 → TELE 14:12 → TELE-EAST 20:07
PROVIDERS: ADMIT Internal Medicine; ATTEND Internal Medicine
PROC: 0JBM0ZZ Excision of Left Upper Leg Subcutaneous Tissue and Fascia, Open Approach (ICD-10-PCS; principal; 2020-12-14 10:59)
PROC: 5A1D70Z Performance of Urinary Filtration, Intermittent, Less than 6 Hours Per Day (ICD-10-PCS; 2020-12-15)
PROC: 5A1D70Z Performance of Urinary Filtration, Intermittent, Less than 6 Hours Per Day (ICD-10-PCS; 2020-12-18)
PROC: B51W1ZZ Fluoroscopy of Dialysis Shunt/Fistula using Low Osmolar Contrast (ICD-10-PCS; 2020-12-18)
PROC: 05753ZZ Dilation of Right Subclavian Vein, Percutaneous Approach (ICD-10-PCS; 2020-12-19)
PROC: 5A1D70Z Performance of Urinary Filtration, Intermittent, Less than 6 Hours Per Day (ICD-10-PCS; 2020-12-20)
DX: T82.858A Stenosis of other vascular prosthetic devices, implants and grafts, initial encounter (principal); I50.23 Acute on chronic systolic (congestive) heart failure; N18.6 End stage renal disease; L03.116 Cellulitis of left lower limb; E44.1 Mild protein-calorie malnutrition; I87.1 Compression of vein; Z68.41 Body mass index [BMI] 40.0-44.9, adult; I42.9 Cardiomyopathy, unspecified; Z20.822 Contact with and (suspected) exposure to COVID-19; E11.42 Type 2 diabetes mellitus with diabetic polyneuropathy; Y83.8 Other surgical procedures as the cause of abnormal reaction of the patient, or of later complication, without mention of misadventure at the time of the procedure; J44.9 Chronic obstructive pulmonary disease, unspecified; E11.22 Type 2 diabetes mellitus with diabetic chronic kidney disease; D63.1 Anemia in chronic kidney disease; E20.8 Other hypoparathyroidism; E66.01 Morbid (severe) obesity due to excess calories; Z99.2 Dependence on renal dialysis; Y92.89 Other specified places as the place of occurrence of the external cause; Z91.011 Allergy to milk products; Z80.1 Family history of malignant neoplasm of trachea, bronchus and lung; Z82.49 Family history of ischemic heart disease and other diseases of the circulatory system; Z90.49 Acquired absence of other specified parts of digestive tract; Z98.51 Tubal ligation status; Z87.440 Personal history of urinary (tract) infections
CPT/HCPCS: 36415; 37248; 71045; 71250; 73700; 74176; 76942; 80048; 80053; 80202; 81001; 83605; 83735; 83880; 84484; 85025; 85610; 85730; 86850; 86900; 86901; 87040; 87070; 87075; 87205; 87426; 88302; 90935; 93005; 93306; 96365; 96366; 96367; 96368; 96375; 97163; 99152; 99153; 99291; G0378; J0690; J0696; J1642; J2001; J2250; J2405; J2543; J3490; J7060; Q9956; Q9967

== ENCOUNTER 2021-01-02 13:11 | Inpatient (IN) | payer MEDICARE, MEDICAID ==
[~2021-01-02] VITALS: Ht 165.1 cm; Wt 94.6 kg
[~2021-01-02 13:11] MED LIST changes: -AMLO-489 PO; +B-CO-6 PO; +ESCI-34 PO; -ESCI10TA PO; -FERR-20 PO; -FURO1TAB31 PO; -HYDR-4833 PO; -LOSA-39 PO; +LOSA25TA38 PO; -NORT25CA PO; +NORT50CA57 PO; +OMEP-260 PO; -POTA1TAB61 PO; +SUCR5CHW PO; -[UNRECOGNIZED DRUG - CODE] PO
[2021-01-02] MEDS ORDERED: HYDROcodone-ACET 10/325MG TAB PO ONE (14:00)
[2021-01-02 14:44] LABS: Basophils # (auto) 0.1 10 ^3/uL (0-0.2); Eosinophils # (auto) 0.2 10 ^3/uL (0-0.8); Lymphocytes % (auto) 9.4 % (10.0-50.0); Monocytes # (auto) 0.8 10 ^3/uL (0-1.3); Neutrophils # (auto) 8.3 10 ^3/uL (1.6-8.6)
[2021-01-02 14:48] LABS: Basophils % (auto) 0.8 % (0.0-2.0); Eosinophils % (auto) 1.7 % (0.0-7.0); Hemoglobin 7.9 g/dL (12.2-16.2); Mean Corpuscular Hemoglobin 31.1 pg (28.0-32.0); Mean Corpuscular Hgb Conc. 34.4 g/dL (32.0-36.0); Mean Corpuscular Volume 90.5 fL (80.0-100.0); Monocytes % (auto) 7.3 % (0.0-12.0); Neutrophils % (auto) 80.8 % (37.0-80.0); Platelet Count (auto) 346 10^3/uL (140-450); Red Blood Cells 2.54 10^6/uL (4.0-5.20); Red Cell Distribution Width 17.1 % (11.8-14.3); White Blood Cell 10.3 10^3/uL (4.4-10.8)
[2021-01-02 15:09] LABS: INR 1.04 (0.9-1.15); Partial Thromboplastin Time 29.9 sec (23.0-31.2)
[2021-01-02 15:11] LABS: Albumin 2.2 g/dL (3.4-5.0); Anion Gap 11 (5-15); Blood Urea Nitrogen 26 mg/dL (7-18); Carbon Dioxide 23 mmol/L (21-32); Chloride 101 mmol/L (98-107); Glucose 132 mg/dL (74-106); Sodium 135 mmol/L (136-145)
[2021-01-02 15:16] LABS: Alanine Aminotransferase 18 U/L (13-56); Alkaline Phosphatase 137 U/L (45-117); Aspartate Aminotransferase 26 U/L (15-37); BUN/Creatinine Ratio 7.6; Bilirubin, Total 0.4 mg/dL (0.2-1.0); GFR African American 17 mL/min; GFR Non-African American 14 mL/min; Total Protein 6.3 g/dL (6.4-8.2)
[2021-01-02] MEDS ORDERED: MORPHINE SULF INJ 2 MG/ML SYRINGE 1ML IV PRN (19:45)
[2021-01-02] MEDS ORDERED: NITROGLYCERIN 0.4 MG SL TAB SL PRN (19:45)
[2021-01-03] MEDS: ATORVASTATIN 20 MG TAB PO SCH ×2 (01:12→21:05)
[2021-01-03] MEDS: TOPIRAMATE 25 MG TAB PO SCH ×3 (01:12→21:05)
[2021-01-03] MEDS: HYDROcodone-ACET 5/325MG TAB PO PRN ×2 (01:13→14:16)
[2021-01-03 01:50] VITALS: BP 112/44
[2021-01-03 05:00] VITALS: BP 118/43
[2021-01-03] MEDS: SEVELAMER 800 MG TAB PO SCH ×4 (08:00→17:39)
[2021-01-03 09:00] VITALS: BP 106/50
[2021-01-03] MEDS: Metoprolol Succinate 25 MG PO SCH (10:07)
[2021-01-03] MEDS: CITALOPRAM HYDROBR 20 MG TAB PO SCH (10:08)
[2021-01-03] MEDS: GABAPENTIN 300 MG CAP PO SCH (10:09)
[2021-01-03] MEDS: PANTOPRAZOLE 40 MG TAB PO SCH (10:09)
[2021-01-03] MEDS: LOSARTAN POTASSIUM 25 MG TAB PO SCH (10:09)
[2021-01-03 13:00] VITALS: BP 111/76
[2021-01-03] MEDS ORDERED: BUMETANIDE 2.5mg/10ml (0.25 mg/ml) INJ IV ONE (14:30)
[2021-01-03 16:53] VITALS: BP 102/50
[2021-01-03] MEDS: TEMAZEPAM 15 MG CAP PO PRN (21:06)
[2021-01-03 22:19] VITALS: BP 123/60
[2021-01-04] MEDS: HYDROcodone-ACET 5/325MG TAB PO PRN ×3 (03:44→23:50)
[2021-01-04 05:06] VITALS: BP 135/57
[2021-01-04 06:41] LABS: Basophils # (auto) 0.1 10 ^3/uL (0-0.2); Lymphocytes # (auto) 0.9 10 ^3/uL (0.4-5.4); Monocytes # (auto) 0.8 10 ^3/uL (0-1.3)
[2021-01-04 06:42] LABS: Basophils % (auto) 0.9 % (0.0-2.0); Eosinophils # (auto) 0.3 10 ^3/uL (0-0.8); Eosinophils % (auto) 3.3 % (0.0-7.0); Hematocrit 24.5 % (36.0-46.0); Lymphocytes % (auto) 8.9 % (10.0-50.0); Mean Corpuscular Hemoglobin 30.5 pg (28.0-32.0); Mean Corpuscular Hgb Conc. 32.6 g/dL (32.0-36.0); Mean Corpuscular Volume 93.5 fL (80.0-100.0); Neutrophils % (auto) 78.9 % (37.0-80.0); Platelet Count (auto) 321 10^3/uL (140-450); Red Blood Cells 2.62 10^6/uL (4.0-5.20); Red Cell Distribution Width 17.3 % (11.8-14.3); White Blood Cell 10.1 10^3/uL (4.4-10.8)
[2021-01-04 06:57] LABS: BUN/Creatinine Ratio 8.3; Calcium 8.7 mg/dL (8.5-10.1); Phosphorus 5.9 mg/dL (2.5-4.90); Potassium 4.3 mmol/L (3.5-5.1)
[2021-01-04] MEDS ORDERED: SODIUM CHL 0.9% 1000 ML BAG XX ONE (07:00)
[2021-01-04] MEDS: SEVELAMER 800 MG TAB PO SCH ×3 (08:26→17:53)
[2021-01-04 08:37] VITALS: BP 139/63
[2021-01-04] MEDS: Metoprolol Succinate 25 MG PO SCH (10:00)
[2021-01-04] MEDS: LOSARTAN POTASSIUM 25 MG TAB PO SCH (10:00)
[2021-01-04] MEDS: CITALOPRAM HYDROBR 20 MG TAB PO SCH (10:14)
[2021-01-04] MEDS: GABAPENTIN 300 MG CAP PO SCH (10:15)
[2021-01-04] MEDS: PANTOPRAZOLE 40 MG TAB PO SCH (10:15)
[2021-01-04] MEDS: TOPIRAMATE 25 MG TAB PO SCH ×2 (10:16→21:33)
[2021-01-04 12:19] VITALS: BP 137/58
[2021-01-04 16:43] VITALS: BP 111/47
[2021-01-04] MEDS ORDERED: EPOETIN ALFA-EPBX 10,000 UNIT/1ML VIAL SC ONE (21:00)
[2021-01-04] MEDS: ATORVASTATIN 20 MG TAB PO SCH (21:33)
[2021-01-04 22:00] VITALS: BP 130/57
[2021-01-04] MEDS: TEMAZEPAM 15 MG CAP PO PRN (22:24)
[2021-01-05 05:00] VITALS: BP 126/62
[2021-01-05 08:00] LABS: BUN/Creatinine Ratio 6.8; Calcium 8.6 mg/dL (8.5-10.1); Potassium 3.7 mmol/L (3.5-5.1)
[2021-01-05] MEDS: SEVELAMER 800 MG TAB PO SCH ×3 (08:30→17:55)
[2021-01-05 08:35] VITALS: BP 126/63
[2021-01-05] MEDS: Metoprolol Succinate 25 MG PO SCH (09:47)
[2021-01-05] MEDS: CITALOPRAM HYDROBR 20 MG TAB PO SCH (09:48)
[2021-01-05] MEDS: LOSARTAN POTASSIUM 25 MG TAB PO SCH (09:48)
[2021-01-05] MEDS: TOPIRAMATE 25 MG TAB PO SCH (09:49)
[2021-01-05] MEDS: PANTOPRAZOLE 40 MG TAB PO SCH (09:49)
[2021-01-05] MEDS: GABAPENTIN 300 MG CAP PO SCH (09:49)
[2021-01-05 13:00] VITALS: BP 122/59
[2021-01-05] MEDS: HYDROcodone-ACET 5/325MG TAB PO PRN (16:23)
[2021-01-05 17:00] VITALS: BP 114/62
[2021-01-05 22:00] VITALS: BP 108/50
[2021-01-05] MEDS: ATORVASTATIN 20 MG TAB PO SCH (23:59)
[2021-01-06 05:00] VITALS: BP 126/104
[2021-01-06] MEDS ORDERED: SODIUM CHL 0.9% 1000 ML BAG XX ONE (07:00)
[2021-01-06] MEDS: SEVELAMER 800 MG TAB PO SCH ×3 (08:00→17:32)
[2021-01-06 08:06] LABS: Basophils # (auto) 0.1 10 ^3/uL (0-0.2); Basophils % (auto) 0.7 % (0.0-2.0); Eosinophils # (auto) 0.4 10 ^3/uL (0-0.8); Hematocrit 26.9 % (36.0-46.0); Hemoglobin 8.8 g/dL (12.2-16.2); Lymphocytes # (auto) 0.9 10 ^3/uL (0.4-5.4); Lymphocytes % (auto) 10.2 % (10.0-50.0); Mean Corpuscular Hemoglobin 29.8 pg (28.0-32.0); Mean Corpuscular Hgb Conc. 32.8 g/dL (32.0-36.0); Mean Corpuscular Volume 90.8 fL (80.0-100.0); Monocytes # (auto) 0.6 10 ^3/uL (0-1.3); Monocytes % (auto) 6.3 % (0.0-12.0); Neutrophils % (auto) 78.8 % (37.0-80.0); Nucleated Red Blood Cells % 0.1 %; Platelet Count (auto) 279 10^3/uL (140-450); Red Blood Cells 2.97 10^6/uL (4.0-5.20); Red Cell Distribution Width 16.9 % (11.8-14.3); White Blood Cell 8.9 10^3/uL (4.4-10.8)
[2021-01-06 09:00] VITALS: BP 126/73
[2021-01-06] MEDS: GABAPENTIN 300 MG CAP PO SCH (09:53)
[2021-01-06] MEDS: TOPIRAMATE 25 MG TAB PO SCH ×3 (09:53→21:43)
[2021-01-06] MEDS: CITALOPRAM HYDROBR 20 MG TAB PO SCH (09:53)
[2021-01-06] MEDS: PANTOPRAZOLE 40 MG TAB PO SCH (09:53)
[2021-01-06] MEDS: LOSARTAN POTASSIUM 25 MG TAB PO SCH (09:54)
[2021-01-06] MEDS: Metoprolol Succinate 25 MG PO SCH (09:57)
[2021-01-06 13:00] VITALS: BP 121/55
[2021-01-06] MEDS: HYDROcodone-ACET 5/325MG TAB PO PRN (14:59)
[2021-01-06 16:33] VITALS: BP 112/48
[2021-01-06] MEDS ORDERED: EPOETIN ALFA-EPBX 10,000 UNIT/1ML VIAL SC ONE (21:00)
[2021-01-06] MEDS: ATORVASTATIN 20 MG TAB PO SCH (21:41)
[2021-01-06 21:48] VITALS: BP 148/67
[2021-01-06] MEDS: HYDROcodone-ACET 7.5/325MG TAB PO PRN (23:01)
[2021-01-06] MEDS: TEMAZEPAM 15 MG CAP PO PRN ×2 (23:06)
[2021-01-07] MEDS: HYDROcodone-ACET 7.5/325MG TAB PO PRN ×3 (02:17→23:19)
[2021-01-07 04:50] VITALS: BP 123/45
[2021-01-07] MEDS: GABAPENTIN 300 MG CAP PO SCH (08:31)
[2021-01-07] MEDS: CITALOPRAM HYDROBR 20 MG TAB PO SCH (08:31)
[2021-01-07] MEDS: SEVELAMER 800 MG TAB PO SCH ×3 (08:31→17:54)
[2021-01-07] MEDS: Metoprolol Succinate 25 MG PO SCH (08:32)
[2021-01-07] MEDS: LOSARTAN POTASSIUM 25 MG TAB PO SCH (08:32)
[2021-01-07] MEDS: PANTOPRAZOLE 40 MG TAB PO SCH (08:32)
[2021-01-07] MEDS: TOPIRAMATE 25 MG TAB PO SCH ×2 (08:32→22:03)
[2021-01-07 09:00] VITALS: BP 102/60
[2021-01-07 13:00] VITALS: BP 130/69
[2021-01-07 17:00] VITALS: BP 112/52
[2021-01-07 22:00] VITALS: BP 134/60
[2021-01-07] MEDS: ATORVASTATIN 20 MG TAB PO SCH (22:03)
[2021-01-08] VITALS (7 sets, daily range): BP systolic 94–164; BP diastolic 50–69
[2021-01-08] MEDS: TEMAZEPAM 15 MG CAP PO PRN ×2 (00:24→23:20)
[2021-01-08] MEDS: SEVELAMER 800 MG TAB PO SCH ×3 (08:39→18:31)
[2021-01-08] MEDS: PANTOPRAZOLE 40 MG TAB PO SCH (10:18)
[2021-01-08] MEDS: GABAPENTIN 300 MG CAP PO SCH (10:18)
[2021-01-08] MEDS: HYDROcodone-ACET 7.5/325MG TAB PO PRN ×2 (10:18→22:06)
[2021-01-08] MEDS: TOPIRAMATE 25 MG TAB PO SCH ×2 (10:18→22:05)
[2021-01-08] MEDS: CITALOPRAM HYDROBR 20 MG TAB PO SCH (10:19)
[2021-01-08] MEDS: LOSARTAN POTASSIUM 25 MG TAB PO SCH (10:25)
[2021-01-08] MEDS: Metoprolol Succinate 25 MG PO SCH (11:45)
[2021-01-08] MEDS ORDERED: DEXTROSE (50%) 50ML SYRG IV PRN (13:15)
[2021-01-08] MEDS: InsuLIN REG 1unit/0.01ml Soln (100units/ml) SC SCH ×2 (17:00→22:04)
[2021-01-08] MEDS: ACCU-CHEK COMFORT CURVE STRIP VI SCH ×2 (17:15→22:05)
[2021-01-08] MEDS: ATORVASTATIN 20 MG TAB PO SCH (22:05)
[2021-01-09 05:00] VITALS: BP 124/56
[2021-01-09] MEDS: ACCU-CHEK COMFORT CURVE STRIP VI SCH ×4 (06:19→21:27)
[2021-01-09] MEDS: InsuLIN REG 1unit/0.01ml Soln (100units/ml) SC SCH ×4 (06:19→21:28)
[2021-01-09] MEDS ORDERED: TETRACAINE 1% INJ 2 ML VIAL IJ ONE (06:46)
[2021-01-09] MEDS ORDERED: LIDOCAINE 1% HCL (LOCAL ANESTH.) INJ 20ML MDV ONE (06:46)
[2021-01-09] MEDS ORDERED: SUCCINYLCHOLINE CHLORIDE 20 MG/ML 10ML VIAL IV ONE (06:46)
[2021-01-09] MEDS ORDERED: PROPOFOL 10 MG/ML 20 ML IV ONE (06:58)
[2021-01-09] MEDS ORDERED: MIDAZOLAM HCL 1MG/1ML-2 ML VIAL ONE (06:58)
[2021-01-09] MEDS ORDERED: fentaNYL CITRATE 100 MCG/2 ML VL ONE (06:58)
[2021-01-09] MEDS ORDERED: ONDANSETRON HCL 4 MG/2 ML VIAL ONE (06:58)
[2021-01-09] MEDS ORDERED: SODIUM CHLORIDE LOCK 10 ML ONE (06:58)
[2021-01-09] MEDS ORDERED: SODIUM CHL 0.9% 1000 ML BAG XX ONE (07:00)
[2021-01-09] MEDS ORDERED: ceFAZolin 1GM/50ML 50 ML IV ONE (07:13)
[2021-01-09] MEDS ORDERED: KETAMINE HCL 10 ML ONE (07:51)
[2021-01-09] MEDS: ceFAZolin 1GM VL ONE ×2 (07:53→08:16)
[2021-01-09] MEDS: SEVELAMER 800 MG TAB PO SCH ×3 (08:00→18:25)
[2021-01-09] MEDS ORDERED: ONDANSETRON HCL 4 MG/2 ML VIAL IV PRN (08:30)
[2021-01-09] MEDS ORDERED: HYDROmorphone HCL 2 MG/ML VL IV PRN (08:30)
[2021-01-09] MEDS ORDERED: MORPHINE SULF INJ 2 MG/ML SYRINGE 1ML IV PRN (08:30)
[2021-01-09] MEDS ORDERED: ACCU-CHEK COMFORT CURVE STRIP VI ONE (08:30)
[2021-01-09 09:05] VITALS: BP 125/64
[2021-01-09] MEDS: Metoprolol Succinate 25 MG PO SCH (10:00)
[2021-01-09] MEDS: LOSARTAN POTASSIUM 25 MG TAB PO SCH (10:00)
[2021-01-09] MEDS: HYDROcodone-ACET 7.5/325MG TAB PO PRN ×2 (12:06→20:19)
[2021-01-09] MEDS: PANTOPRAZOLE 40 MG TAB PO SCH (12:58)
[2021-01-09] MEDS: CITALOPRAM HYDROBR 20 MG TAB PO SCH (12:58)
[2021-01-09] MEDS: GABAPENTIN 300 MG CAP PO SCH (12:58)
[2021-01-09] MEDS: TOPIRAMATE 25 MG TAB PO SCH ×2 (12:59→21:27)
[2021-01-09 13:00] VITALS: BP 117/53
[2021-01-09 17:00] VITALS: BP 104/47
[2021-01-09] MEDS ORDERED: EPOETIN ALFA-EPBX 10,000 UNIT/1ML VIAL SC ONE (21:00)
[2021-01-09] MEDS: ATORVASTATIN 20 MG TAB PO SCH (21:27)
[2021-01-09 21:44] VITALS: BP 122/53
[2021-01-09] MEDS: TEMAZEPAM 15 MG CAP PO PRN (22:59)
[2021-01-10 04:56] VITALS: BP 112/59
[2021-01-10] MEDS: ACCU-CHEK COMFORT CURVE STRIP VI SCH ×4 (06:04→22:00)
[2021-01-10] MEDS: InsuLIN REG 1unit/0.01ml Soln (100units/ml) SC SCH ×4 (06:04→22:00)
[2021-01-10] MEDS: HYDROcodone-ACET 7.5/325MG TAB PO PRN ×2 (06:07→20:24)
[2021-01-10] MEDS: SEVELAMER 800 MG TAB PO SCH ×3 (08:19→18:00)
[2021-01-10 09:00] VITALS: BP 136/57
[2021-01-10] MEDS: Metoprolol Succinate 25 MG PO SCH (09:58)
[2021-01-10] MEDS: PANTOPRAZOLE 40 MG TAB PO SCH (09:58)
[2021-01-10] MEDS: CITALOPRAM HYDROBR 20 MG TAB PO SCH (09:58)
[2021-01-10] MEDS: LOSARTAN POTASSIUM 25 MG TAB PO SCH (09:59)
[2021-01-10] MEDS: GABAPENTIN 300 MG CAP PO SCH (10:00)
[2021-01-10] MEDS: TOPIRAMATE 25 MG TAB PO SCH ×2 (10:00→22:00)
[2021-01-10] MEDS ORDERED: NYSTATIN TOPICAL POWDER 15GM TOP ONE (10:30)
[2021-01-10 12:56] VITALS: BP 136/57
[2021-01-10 13:00] VITALS: BP 98/66
[2021-01-10] MEDS ORDERED: Pro-Stat SF 30ml Vanilla PO SCH (18:00)
[2021-01-10 21:45] VITALS: BP 151/63
[2021-01-10] MEDS: ATORVASTATIN 20 MG TAB PO SCH (22:00)
[2021-01-10] MEDS ORDERED: NYSTATIN TOPICAL POWDER 15GM TOP SCH (22:00)
[2021-01-11] MEDS ORDERED: SODIUM CHL 0.9% 1000 ML BAG XX ONE (07:00)
[2021-01-11] MEDS ORDERED: EPOETIN ALFA-EPBX 10,000 UNIT/1ML VIAL SC ONE (21:00)
== END 2021-01-10 22:10 | DRG 981 ==
LOC: EDBD 13:11 → ER 13:11 → TELE 19:35 → TELE-CENTR 23:35
PROVIDERS: ADMIT Nurse Practitioner Acute Care; ATTEND Internal Medicine
PROC: 5A1D70Z Performance of Urinary Filtration, Intermittent, Less than 6 Hours Per Day (ICD-10-PCS; principal; 2021-01-04)
PROC: 5A1D70Z Performance of Urinary Filtration, Intermittent, Less than 6 Hours Per Day (ICD-10-PCS; 2021-01-06)
PROC: 0KBR0ZZ Excision of Left Upper Leg Muscle, Open Approach (ICD-10-PCS; 2021-01-09)
PROC: 5A1D70Z Performance of Urinary Filtration, Intermittent, Less than 6 Hours Per Day (ICD-10-PCS; 2021-01-09)
DX: I13.2 Hypertensive heart and chronic kidney disease with heart failure and with stage 5 chronic kidney disease, or end stage renal disease (principal); N18.6 End stage renal disease; I50.23 Acute on chronic systolic (congestive) heart failure; L03.317 Cellulitis of buttock; L02.416 Cutaneous abscess of left lower limb; B48.8 Other specified mycoses; S71.102A Unspecified open wound, left thigh, initial encounter; M79.89 Other specified soft tissue disorders; E66.01 Morbid (severe) obesity due to excess calories; Z68.35 Body mass index [BMI] 35.0-35.9, adult; Z20.822 Contact with and (suspected) exposure to COVID-19; D63.1 Anemia in chronic kidney disease; E11.22 Type 2 diabetes mellitus with diabetic chronic kidney disease; J44.9 Chronic obstructive pulmonary disease, unspecified; Z79.899 Other long term (current) drug therapy; Z80.1 Family history of malignant neoplasm of trachea, bronchus and lung; Z80.3 Family history of malignant neoplasm of breast; Z82.49 Family history of ischemic heart disease and other diseases of the circulatory system; Z99.2 Dependence on renal dialysis; E11.42 Type 2 diabetes mellitus with diabetic polyneuropathy; Z90.49 Acquired absence of other specified parts of digestive tract; X58.XXXA Exposure to other specified factors, initial encounter
CPT/HCPCS: 36415; 71045; 72131; 72192; 80048; 80053; 82962; 83880; 84100; 84484; 85025; 85610; 85730; 86850; 86900; 86901; 87070; 87075; 87081; 87205; 87426; 88302; 93970; 96374; 97110; 97116; 97530; G0378; J0330; J0690; J1642; J1815; J2001; J2250; J2405; J2704

== ENCOUNTER 2021-03-11 11:07 | Inpatient (IN) | payer MEDICARE, MEDICAID ==
[~2021-03-11] VITALS: Ht 160 cm; Wt 81.0 kg
[2021-03-11 13:37] LABS: Basophils # (auto) 0.1 10 ^3/uL (0-0.2); Eosinophils # (auto) 0.1 10 ^3/uL (0-0.8); Eosinophils % (auto) 1.5 % (0.0-7.0); Hematocrit 24.8 % (36.0-46.0); Hemoglobin 8.1 g/dL (12.2-16.2); Lymphocytes # (auto) 1.3 10 ^3/uL (0.4-5.4); Mean Corpuscular Volume 89.5 fL (80.0-100.0); Neutrophils # (auto) 7.3 10 ^3/uL (1.6-8.6); Red Blood Cells 2.77 10^6/uL (4.0-5.20); Red Cell Distribution Width 19.1 % (11.8-14.3)
[2021-03-11 13:39] LABS: Basophils % (auto) 0.7 % (0.0-2.0); Lymphocytes % (auto) 13.5 % (10.0-50.0); Mean Corpuscular Hemoglobin 29.2 pg (28.0-32.0); Mean Corpuscular Hgb Conc. 32.6 g/dL (32.0-36.0); Monocytes # (auto) 0.9 10 ^3/uL (0-1.3); Monocytes % (auto) 8.9 % (0.0-12.0); Neutrophils % (auto) 75.4 % (37.0-80.0); White Blood Cell 9.6 10^3/uL (4.4-10.8)
[2021-03-11 13:56] LABS: Albumin 2.7 g/dL (3.4-5.0); Calcium 7.7 mg/dL (8.5-10.1); Potassium 3.9 mmol/L (3.5-5.1)
[2021-03-11 13:59] LABS: BUN/Creatinine Ratio 4.3; Bilirubin, Total 0.6 mg/dL (0.2-1.0); Total Protein 6.4 g/dL (6.4-8.2)
[2021-03-11 19:35] LABS: Magnesium 1.8 mg/dL (1.6-2.6)
[2021-03-11 20:03] LABS: INR 1.04 (0.9-1.15); Partial Thromboplastin Time 31.2 sec (23.0-31.2)
[2021-03-11] MEDS ORDERED: DOCUSATE SOD 100 MG CAP PO PRN (21:45)
[2021-03-11] MEDS ORDERED: NITROGLYCERIN 0.4 MG SL TAB SL PRN (21:45)
[2021-03-11] MEDS ORDERED: ONDANSETRON HCL 4 MG/2 ML VIAL IV PRN (21:45)
[2021-03-11] MEDS ORDERED: MORPHINE SULFATE INJECTION 2 MG/ML SYRG IV PRN (21:45)
[2021-03-11] MEDS ORDERED: DEXTROSE (50%) 50ML SYRG IV PRN (21:45)
[2021-03-11] MEDS ORDERED: ACETAMINOPHEN 325 MG TAB PO PRN (21:45)
[2021-03-11] MEDS: SODIUM CHLOR 0.9% PF (SALINE LOCK) 10ML VIAL/SYR IV SCH (22:00)
[2021-03-11] MEDS: ASCORBIC ACID 500 MG TAB PO SCH (22:30)
[2021-03-11] MEDS: ACCU-CHEK COMFORT CURVE STRIP VI SCH (22:36)
[2021-03-11] MEDS: InsuLIN REG 1unit/0.01ml Soln (100units/ml) SC SCH (22:36)
[2021-03-11] MEDS: HEPARIN SODIUM (PORCINE) 5000 UNITS/ML 1ML VIAL SC SCH (22:47)
[2021-03-12] VITALS (7 sets, daily range): BP systolic 131–156; BP diastolic 42–75
[2021-03-12] MEDS ORDERED: ZOLP10TA PO (01:07)
[2021-03-12] MEDS: SODIUM CHLOR 0.9% PF (SALINE LOCK) 10ML VIAL/SYR IV SCH ×3 (06:23→22:00)
[2021-03-12] MEDS: InsuLIN REG 1unit/0.01ml Soln (100units/ml) SC SCH ×4 (06:23→22:00)
[2021-03-12] MEDS: ACCU-CHEK COMFORT CURVE STRIP VI SCH ×4 (06:23→22:00)
[2021-03-12] MEDS: ZINC SULFATE 220mg CAP or TAB PO SCH (09:41)
[2021-03-12] MEDS: MULTIPLE VITAMIN TAB PO SCH (09:41)
[2021-03-12] MEDS: ASCORBIC ACID 500 MG TAB PO SCH ×2 (09:41→22:00)
[2021-03-12] MEDS: HYDROcodone-ACET 5/325MG TAB PO PRN ×2 (09:43→21:20)
[2021-03-12] MEDS: FAMOTIDINE 20 MG TAB PO SCH (09:53)
[2021-03-12] MEDS: HEPARIN SODIUM (PORCINE) 5000 UNITS/ML 1ML VIAL SC SCH ×2 (09:54→22:00)
[2021-03-12 13:25] LABS: BUN/Creatinine Ratio 4.8; Calcium 7.9 mg/dL (8.5-10.1)
[2021-03-12] MEDS: MUPIROCIN 2% OINT 15gm or 22gm EACHNOSTRI SCH (22:00)
[2021-03-13 05:00] VITALS: BP 140/61
[2021-03-13] MEDS: SODIUM CHLOR 0.9% PF (SALINE LOCK) 10ML VIAL/SYR IV SCH ×3 (06:00→22:00)
[2021-03-13] MEDS: InsuLIN REG 1unit/0.01ml Soln (100units/ml) SC SCH ×4 (06:40→22:00)
[2021-03-13] MEDS: ACCU-CHEK COMFORT CURVE STRIP VI SCH ×4 (06:40→22:00)
[2021-03-13] MEDS ORDERED: SODIUM CHL 0.9% 1000 ML BAG XX ONE (07:00)
[2021-03-13 09:00] VITALS: BP 151/64
[2021-03-13] MEDS: HYDROcodone-ACET 5/325MG TAB PO PRN ×2 (09:31→23:00)
[2021-03-13] MEDS: ASCORBIC ACID 500 MG TAB PO SCH ×2 (09:31→22:00)
[2021-03-13] MEDS: MULTIPLE VITAMIN TAB PO SCH (09:32)
[2021-03-13] MEDS: ZINC SULFATE 220mg CAP or TAB PO SCH (09:32)
[2021-03-13] MEDS: MUPIROCIN 2% OINT 15gm or 22gm EACHNOSTRI SCH ×2 (09:32→22:00)
[2021-03-13] MEDS: FAMOTIDINE 20 MG TAB PO SCH (09:32)
[2021-03-13] MEDS: HEPARIN SODIUM (PORCINE) 5000 UNITS/ML 1ML VIAL SC SCH ×2 (09:34→22:00)
[2021-03-13 09:40] LABS: Basophils # (auto) 0.1 10 ^3/uL (0-0.2); Eosinophils # (auto) 0.2 10 ^3/uL (0-0.8); Eosinophils % (auto) 2.1 % (0.0-7.0); Hematocrit 27.1 % (36.0-46.0); Hemoglobin 8.9 g/dL (12.2-16.2); Lymphocytes # (auto) 1.1 10 ^3/uL (0.4-5.4); Lymphocytes % (auto) 12.1 % (10.0-50.0); Mean Corpuscular Hemoglobin 28.7 pg (28.0-32.0); Mean Corpuscular Hgb Conc. 32.9 g/dL (32.0-36.0); Mean Corpuscular Volume 87.3 fL (80.0-100.0); Monocytes # (auto) 0.5 10 ^3/uL (0-1.3); Monocytes % (auto) 5.5 % (0.0-12.0); Neutrophils # (auto) 7.1 10 ^3/uL (1.6-8.6); Neutrophils % (auto) 79.3 % (37.0-80.0); Red Blood Cells 3.11 10^6/uL (4.0-5.20); Red Cell Distribution Width 18.9 % (11.8-14.3)
[2021-03-13 09:57] LABS: BUN/Creatinine Ratio 5.3; Calcium 8.2 mg/dL (8.5-10.1); Potassium 3.6 mmol/L (3.5-5.1)
[2021-03-13 13:00] VITALS: BP 125/40
[2021-03-13 17:00] VITALS: BP 156/63
[2021-03-13 20:00] VITALS: BP 145/91
[2021-03-13] MEDS ORDERED: EPOETIN ALFA-EPBX 10,000 UNIT/1ML VIAL SC ONE (21:00)
[2021-03-13 22:00] VITALS: BP 120/69
[2021-03-14 05:00] VITALS: BP 127/51
[2021-03-14] MEDS: InsuLIN REG 1unit/0.01ml Soln (100units/ml) SC SCH ×3 (07:00→17:00)
[2021-03-14] MEDS: ACCU-CHEK COMFORT CURVE STRIP VI SCH ×3 (07:00→17:00)
[2021-03-14 08:46] VITALS: BP 125/55
[2021-03-14] MEDS: MULTIPLE VITAMIN TAB PO SCH (10:33)
[2021-03-14] MEDS: ZINC SULFATE 220mg CAP or TAB PO SCH (10:33)
[2021-03-14] MEDS: MUPIROCIN 2% OINT 15gm or 22gm EACHNOSTRI SCH (10:34)
[2021-03-14] MEDS: ASCORBIC ACID 500 MG TAB PO SCH (10:34)
[2021-03-14] MEDS: FAMOTIDINE 20 MG TAB PO SCH (10:34)
[2021-03-14] MEDS: HYDROcodone-ACET 5/325MG TAB PO PRN (10:34)
[2021-03-14] MEDS: HEPARIN SODIUM (PORCINE) 5000 UNITS/ML 1ML VIAL SC SCH (10:38)
[2021-03-14 13:00] VITALS: BP 135/67
[2021-03-14] MEDS: SODIUM CHLOR 0.9% PF (SALINE LOCK) 10ML VIAL/SYR IV SCH (14:00)
[2021-03-14 14:14] LABS: BUN/Creatinine Ratio 5.2; Calcium 8.5 mg/dL (8.5-10.1); Potassium 3.9 mmol/L (3.5-5.1)
[2021-03-14 17:00] VITALS: BP 128/68
== END 2021-03-14 18:16 | disposition home or self-care (01) | DRG 291 ==
LOC: ER 11:07 → TELE 21:39 → TELE-WESTW 23:39
PROVIDERS: ADMIT Nurse Practitioner Family; ATTEND Internal Medicine
PROC: 5A1D70Z Performance of Urinary Filtration, Intermittent, Less than 6 Hours Per Day (ICD-10-PCS; principal; 2021-03-13)
DX: I13.2 Hypertensive heart and chronic kidney disease with heart failure and with stage 5 chronic kidney disease, or end stage renal disease (principal); N18.6 End stage renal disease; I50.23 Acute on chronic systolic (congestive) heart failure; D63.1 Anemia in chronic kidney disease; E66.01 Morbid (severe) obesity due to excess calories; E78.5 Hyperlipidemia, unspecified; Z20.822 Contact with and (suspected) exposure to COVID-19; J44.9 Chronic obstructive pulmonary disease, unspecified; Z98.51 Tubal ligation status; Z68.37 Body mass index [BMI] 37.0-37.9, adult; Z90.49 Acquired absence of other specified parts of digestive tract; Z99.2 Dependence on renal dialysis; Z80.3 Family history of malignant neoplasm of breast; Z82.49 Family history of ischemic heart disease and other diseases of the circulatory system
CPT/HCPCS: 36415; 71045; 80048; 80053; 82962; 83735; 83880; 84484; 85025; 85610; 85730; 87081; 87340; 87426; 90935; 93005; 93970; G0378; J1815; J2405

== ENCOUNTER 2021-03-31 05:40 | Inpatient (IN) | payer MEDICARE, MEDICAID ==
[~2021-03-31] VITALS: Ht 165.1 cm; Wt 90.4 kg
[~2021-03-31 05:40] MED LIST changes: -SUCR5CHW PO; +ZOLP10TA PO
[2021-03-31] MEDS ORDERED: SODIUM CHLORIDE 0.9% 1,000 ML IV ONE ×2 (06:30→07:45)
[2021-03-31 07:34] LABS: Basophils # (auto) 0 10 ^3/uL (0-0.2); Basophils % (auto) 0.3 % (0.0-2.0); Eosinophils # (auto) 0.1 10 ^3/uL (0-0.8); Eosinophils % (auto) 1.1 % (0.0-7.0); Monocytes # (auto) 0.6 10 ^3/uL (0-1.3); White Blood Cell 10.3 10^3/uL (4.4-10.8)
[2021-03-31 07:36] LABS: Hematocrit 26.5 % (36.0-46.0); Hemoglobin 8.9 g/dL (12.2-16.2); Lymphocytes # (auto) 0.7 10 ^3/uL (0.4-5.4); Lymphocytes % (auto) 6.3 % (10.0-50.0); Mean Corpuscular Hemoglobin 30.3 pg (28.0-32.0); Mean Corpuscular Hgb Conc. 33.5 g/dL (32.0-36.0); Mean Corpuscular Volume 90.6 fL (80.0-100.0); Monocytes % (auto) 5.4 % (0.0-12.0); Neutrophils % (auto) 86.9 % (37.0-80.0); Red Blood Cells 2.93 10^6/uL (4.0-5.20); Red Cell Distribution Width 19.6 % (11.8-14.3)
[2021-03-31 07:42] LABS: Albumin 2.7 g/dL (3.4-5.0); BUN/Creatinine Ratio 5.2; Calcium 8.1 mg/dL (8.5-10.1); Magnesium 2.1 mg/dL (1.6-2.6); Potassium 4.3 mmol/L (3.5-5.1)
[2021-03-31 07:48] LABS: Bilirubin, Total 0.8 mg/dL (0.2-1.0); Lactic Acid w/Reflex 2.9 mmol/L (0.4-2.0); Total Protein 6.6 g/dL (6.4-8.2)
[2021-03-31] MEDS ORDERED: NITROGLYCERIN 0.4 MG SL TAB SL PRN (14:00)
[2021-03-31] MEDS ORDERED: ONDANSETRON HCL 4 MG/2 ML VIAL IV PRN (14:00)
[2021-03-31] MEDS ORDERED: MORPHINE SULF INJ 2 MG/ML SYRINGE 1ML IV PRN ×2 (14:00)
[2021-03-31] MEDS ORDERED: ACETAMINOPHEN 500 MG TAB PO PRN (14:00)
[2021-03-31] MEDS: TOPIRAMATE 25 MG TAB PO SCH (14:56)
[2021-03-31] MEDS: SEVELAMER 800 MG TAB PO SCH (18:00)
[2021-03-31] MEDS ORDERED: ASPirin 81 mg TAB PO ONE (20:00)
[2021-03-31] MEDS ORDERED: ENOXAPARIN SOD 100 MG/1 ML SYRINGE SC SCH (20:00)
[2021-03-31 22:00] VITALS: BP 96/47
[2021-03-31] MEDS: ZOLPIDEM TARTRATE 5 MG TAB PO SCH (22:00)
[2021-03-31] MEDS: NORTRIPTYLINE HCL 25 MG CAP PO SCH (22:00)
[2021-03-31] MEDS ORDERED: MIDODRINE HCL 10 MG TAB PO ONE (22:45)
[2021-03-31] MEDS: ATORVASTATIN 20 MG TAB PO SCH (22:50)
[2021-04-01] MEDS: TOPIRAMATE 25 MG TAB PO SCH ×2 (02:15→14:58)
[2021-04-01 05:00] VITALS: BP 105/47
[2021-04-01 06:04] LABS: Basophils # (auto) 0 10 ^3/uL (0-0.2); Lymphocytes # (auto) 0.8 10 ^3/uL (0.4-5.4); Lymphocytes % (auto) 8.7 % (10.0-50.0); Red Cell Distribution Width 19.3 % (11.8-14.3)
[2021-04-01 06:07] LABS: Basophils % (auto) 0.5 % (0.0-2.0); Eosinophils # (auto) 0.3 10 ^3/uL (0-0.8); Eosinophils % (auto) 3.8 % (0.0-7.0); Hematocrit 22.9 % (36.0-46.0); Hemoglobin 7.7 g/dL (12.2-16.2); Mean Corpuscular Hemoglobin 29.9 pg (28.0-32.0); Mean Corpuscular Hgb Conc. 33.5 g/dL (32.0-36.0); Mean Corpuscular Volume 89.2 fL (80.0-100.0); Monocytes # (auto) 0.8 10 ^3/uL (0-1.3); Monocytes % (auto) 9.4 % (0.0-12.0); Neutrophils # (auto) 6.9 10 ^3/uL (1.6-8.6); Neutrophils % (auto) 77.6 % (37.0-80.0); Red Blood Cells 2.57 10^6/uL (4.0-5.20); White Blood Cell 8.9 10^3/uL (4.4-10.8)
[2021-04-01 06:21] LABS: BUN/Creatinine Ratio 6.8; Calcium 8.1 mg/dL (8.5-10.1); Potassium 4.6 mmol/L (3.5-5.1)
[2021-04-01] MEDS ORDERED: SODIUM CHL 0.9% 1000 ML BAG XX ONE (07:00)
[2021-04-01] MEDS ORDERED: MIDODRINE HCL 10 MG TAB PO ONE (08:00)
[2021-04-01 08:30] VITALS: BP 105/68
[2021-04-01] MEDS: SEVELAMER 800 MG TAB PO SCH ×3 (08:57→18:42)
[2021-04-01] MEDS: ALBUMIN 25% 100 ML IV SCH ×3 (10:00→12:19)
[2021-04-01] MEDS ORDERED: LOSARTAN POTASSIUM 25 MG TAB PO SCH (10:00)
[2021-04-01] MEDS ORDERED: METOPROLOL SUCCINATE XL 50 MG TAB PO SCH (10:00)
[2021-04-01] MEDS: MIDODRINE HCL 10 MG TAB PO SCH ×2 (10:00→21:39)
[2021-04-01] MEDS ORDERED: FAMOTIDINE 20 MG TAB PO SCH (10:00)
[2021-04-01 12:30] VITALS: BP 124/51
[2021-04-01] MEDS ORDERED: HEPARIN DRIP/D5W 100UNITS/ML 250 ML IV SCH (13:00)
[2021-04-01] MEDS ORDERED: HEPARIN SODIUM (PORCINE) 5000 UNITS/ML 1ML VIAL IV ONE (13:00)
[2021-04-01 14:00] LABS: Basophils # (auto) 0 10 ^3/uL (0-0.2); Basophils % (auto) 0.4 % (0.0-2.0); Eosinophils # (auto) 0.3 10 ^3/uL (0-0.8); Eosinophils % (auto) 3.5 % (0.0-7.0); Hematocrit 25.3 % (36.0-46.0); Hemoglobin 8.5 g/dL (12.2-16.2); Lymphocytes # (auto) 0.5 10 ^3/uL (0.4-5.4); Lymphocytes % (auto) 6.1 % (10.0-50.0); Mean Corpuscular Hemoglobin 29.4 pg (28.0-32.0); Mean Corpuscular Hgb Conc. 33.5 g/dL (32.0-36.0); Mean Corpuscular Volume 87.6 fL (80.0-100.0); Monocytes # (auto) 0.6 10 ^3/uL (0-1.3); Monocytes % (auto) 6.9 % (0.0-12.0); Neutrophils % (auto) 83.1 % (37.0-80.0); Red Blood Cells 2.88 10^6/uL (4.0-5.20); Red Cell Distribution Width 19.1 % (11.8-14.3); White Blood Cell 8.4 10^3/uL (4.4-10.8)
[2021-04-01 14:14] LABS: INR 1.03 (0.9-1.15); Partial Thromboplastin Time 32.6 sec (23.0-31.2)
[2021-04-01] MEDS: GABAPENTIN 300 MG CAP PO SCH (14:57)
[2021-04-01] MEDS: ASPirin-EC 81 mg tab PO SCH (14:57)
[2021-04-01] MEDS: CITALOPRAM HYDROBR 20 MG TAB PO SCH (14:57)
[2021-04-01] MEDS: PANTOPRAZOLE 40 MG TAB PO SCH (14:58)
[2021-04-01 17:00] VITALS: BP 124/54
[2021-04-01 20:00] VITALS: BP 136/47
[2021-04-01] MEDS ORDERED: EPOETIN ALFA-EPBX 10,000 UNIT/1ML VIAL SC ONE (21:00)
[2021-04-01 21:35] LABS: INR 1.06 (0.9-1.15); Partial Thromboplastin Time 44.7 sec (23.0-31.2)
[2021-04-01] MEDS: ATORVASTATIN 20 MG TAB PO SCH (21:35)
[2021-04-01] MEDS: ZOLPIDEM TARTRATE 5 MG TAB PO SCH (21:37)
[2021-04-01] MEDS: NORTRIPTYLINE HCL 25 MG CAP PO SCH (21:38)
[2021-04-01 22:00] VITALS: BP 136/47
[2021-04-02] VITALS (9 sets, daily range): BP systolic 115–143; BP diastolic 46–70
[2021-04-02] MEDS: TOPIRAMATE 25 MG TAB PO SCH ×2 (02:14→14:00)
[2021-04-02 06:12] LABS: Eosinophils # (auto) 0.4 10 ^3/uL (0-0.8); Lymphocytes # (auto) 1.1 10 ^3/uL (0.4-5.4); Mean Corpuscular Hgb Conc. 33.4 g/dL (32.0-36.0); Neutrophils # (auto) 5.4 10 ^3/uL (1.6-8.6)
[2021-04-02 06:14] LABS: Basophils # (auto) 0.1 10 ^3/uL (0-0.2); Basophils % (auto) 0.7 % (0.0-2.0); Eosinophils % (auto) 4.9 % (0.0-7.0); Hematocrit 22.7 % (36.0-46.0); Hemoglobin 7.6 g/dL (12.2-16.2); Lymphocytes % (auto) 13.5 % (10.0-50.0); Mean Corpuscular Hemoglobin 29.3 pg (28.0-32.0); Mean Corpuscular Volume 87.8 fL (80.0-100.0); Monocytes # (auto) 0.9 10 ^3/uL (0-1.3); Monocytes % (auto) 11.5 % (0.0-12.0); Neutrophils % (auto) 69.4 % (37.0-80.0); Red Blood Cells 2.59 10^6/uL (4.0-5.20); Red Cell Distribution Width 19.1 % (11.8-14.3); White Blood Cell 7.8 10^3/uL (4.4-10.8)
[2021-04-02 06:30] LABS: BUN/Creatinine Ratio 6.1; Calcium 8.1 mg/dL (8.5-10.1); Potassium 3.9 mmol/L (3.5-5.1)
[2021-04-02] MEDS: SEVELAMER 800 MG TAB PO SCH ×3 (08:30→19:02)
[2021-04-02] MEDS: PANTOPRAZOLE 40 MG TAB PO SCH (09:00)
[2021-04-02] MEDS: GABAPENTIN 300 MG CAP PO SCH (09:00)
[2021-04-02] MEDS: CITALOPRAM HYDROBR 20 MG TAB PO SCH (09:00)
[2021-04-02] MEDS: MIDODRINE HCL 10 MG TAB PO SCH ×2 (09:00→22:13)
[2021-04-02] MEDS: ASPirin-EC 81 mg tab PO SCH (09:00)
[2021-04-02] MEDS ORDERED: IODIXANOL 320MG/ML 100ML BTL IV ONE (09:39)
[2021-04-02] MEDS ORDERED: LIDOCAINE 2%HCL (LOCAL ANESTH.) INJ 20ML MDV ONE (09:39)
[2021-04-02] MEDS ORDERED: ANGIOMAX 250 MG VIAL IV ONE (10:09)
[2021-04-02] MEDS ORDERED: MIDAZOLAM HCL 1MG/1ML-2 ML VIAL ONE (10:10)
[2021-04-02] MEDS ORDERED: SODIUM CHL 0.9% 0 ML ONE (10:10)
[2021-04-02] MEDS ORDERED: fentaNYL CITRATE 100 MCG/2 ML VL ONE (10:10)
[2021-04-02] MEDS ORDERED: IOHEXOL 350 MG/ML 100ML IJ ONE (17:16)
[2021-04-02] MEDS: NORTRIPTYLINE HCL 25 MG CAP PO SCH (22:12)
[2021-04-02] MEDS: ATORVASTATIN 20 MG TAB PO SCH (22:12)
[2021-04-02] MEDS: ZOLPIDEM TARTRATE 5 MG TAB PO SCH (22:13)
[2021-04-03] MEDS: TOPIRAMATE 25 MG TAB PO SCH ×2 (02:29→14:39)
[2021-04-03 05:27] VITALS: BP 132/67
[2021-04-03 07:05] LABS: Hematocrit 23.3 % (36.0-46.0); Hemoglobin 7.6 g/dL (12.2-16.2)
[2021-04-03 08:00] VITALS: BP 144/67
[2021-04-03 09:00] VITALS: BP 144/67
[2021-04-03] MEDS: MIDODRINE HCL 10 MG TAB PO SCH ×2 (10:00→21:31)
[2021-04-03] MEDS: PANTOPRAZOLE 40 MG TAB PO SCH (10:21)
[2021-04-03] MEDS: CLOPIDOGREL BISULFATE 75 MG TAB PO SCH (10:21)
[2021-04-03] MEDS: ASPirin-EC 81 mg tab PO SCH (10:21)
[2021-04-03] MEDS: GABAPENTIN 300 MG CAP PO SCH (10:22)
[2021-04-03] MEDS: CITALOPRAM HYDROBR 20 MG TAB PO SCH (10:22)
[2021-04-03] MEDS: SEVELAMER 800 MG TAB PO SCH ×3 (10:22→18:21)
[2021-04-03 13:00] VITALS: BP_SYST 115; BP_SYST 129; BP_DIAS 48; BP_DIAS 62
[2021-04-03 17:00] VITALS: BP 128/50
[2021-04-03] MEDS ORDERED: levoFLOXacin 500 MG TAB PO ONE (17:45)
[2021-04-03] MEDS ORDERED: IPRATROPIUM BROM 0.5 MG/2.5ML INH SOL NEB PRN (17:45)
[2021-04-03] MEDS ORDERED: ALBUTEROL SULF 2.5 MG/0.5ML(0.5%) NEB SOLN NEB PRN (17:45)
[2021-04-03] MEDS: ATORVASTATIN 20 MG TAB PO SCH (21:31)
[2021-04-03] MEDS: NORTRIPTYLINE HCL 25 MG CAP PO SCH (21:32)
[2021-04-03] MEDS: ZOLPIDEM TARTRATE 5 MG TAB PO SCH (21:32)
[2021-04-03 21:42] VITALS: BP 129/59
[2021-04-04] VITALS (7 sets, daily range): BP systolic 89–144; BP diastolic 43–69
[2021-04-04] MEDS: TOPIRAMATE 25 MG TAB PO SCH ×2 (02:20→16:43)
[2021-04-04] MEDS: SEVELAMER 800 MG TAB PO SCH ×3 (08:24→18:47)
[2021-04-04] MEDS: levoFLOXacin 250 MG TAB PO SCH (09:56)
[2021-04-04] MEDS: GABAPENTIN 300 MG CAP PO SCH (09:56)
[2021-04-04] MEDS: CITALOPRAM HYDROBR 20 MG TAB PO SCH (09:56)
[2021-04-04] MEDS: CLOPIDOGREL BISULFATE 75 MG TAB PO SCH (09:56)
[2021-04-04] MEDS: ASPirin-EC 81 mg tab PO SCH (09:56)
[2021-04-04] MEDS: PANTOPRAZOLE 40 MG TAB PO SCH (09:56)
[2021-04-04] MEDS: MIDODRINE HCL 10 MG TAB PO SCH ×2 (09:57→21:56)
[2021-04-04] MEDS: ATORVASTATIN 20 MG TAB PO SCH (21:55)
[2021-04-04] MEDS: NORTRIPTYLINE HCL 25 MG CAP PO SCH (21:55)
[2021-04-05] MEDS: TOPIRAMATE 25 MG TAB PO SCH ×2 (02:27→14:15)
[2021-04-05 05:30] VITALS: BP 125/82
[2021-04-05 06:37] LABS: Basophils # (auto) 0 10 ^3/uL (0-0.2); Basophils % (auto) 0.4 % (0.0-2.0); Eosinophils # (auto) 0.3 10 ^3/uL (0-0.8); Eosinophils % (auto) 4.3 % (0.0-7.0); Lymphocytes # (auto) 1.1 10 ^3/uL (0.4-5.4); Monocytes # (auto) 0.8 10 ^3/uL (0-1.3); White Blood Cell 7.4 10^3/uL (4.4-10.8)
[2021-04-05 06:39] LABS: Hematocrit 24.2 % (36.0-46.0); Lymphocytes % (auto) 15.4 % (10.0-50.0); Mean Corpuscular Hemoglobin 28.7 pg (28.0-32.0); Mean Corpuscular Hgb Conc. 33.2 g/dL (32.0-36.0); Mean Corpuscular Volume 86.4 fL (80.0-100.0); Monocytes % (auto) 11.1 % (0.0-12.0); Neutrophils # (auto) 5.1 10 ^3/uL (1.6-8.6); Neutrophils % (auto) 68.8 % (37.0-80.0); Red Cell Distribution Width 18.2 % (11.8-14.3)
[2021-04-05] MEDS ORDERED: SODIUM CHL 0.9% 1000 ML BAG XX ONE (07:00)
[2021-04-05 08:00] VITALS: BP 140/73
[2021-04-05 09:00] VITALS: BP 140/73
[2021-04-05] MEDS: ASPirin-EC 81 mg tab PO SCH (10:31)
[2021-04-05] MEDS: SEVELAMER 800 MG TAB PO SCH ×3 (10:31→18:34)
[2021-04-05] MEDS: CITALOPRAM HYDROBR 20 MG TAB PO SCH (10:31)
[2021-04-05] MEDS: GABAPENTIN 300 MG CAP PO SCH (10:31)
[2021-04-05] MEDS: CLOPIDOGREL BISULFATE 75 MG TAB PO SCH (10:31)
[2021-04-05] MEDS: MIDODRINE HCL 10 MG TAB PO SCH ×2 (10:31→21:41)
[2021-04-05 13:00] VITALS: BP 127/60
[2021-04-05 17:00] VITALS: BP 119/53
[2021-04-05] MEDS ORDERED: OXYB5TAB61 GT (18:02)
[2021-04-05] MEDS ORDERED: CITA-73 PO (18:03)
[2021-04-05] MEDS ORDERED: PANT1INJ3 IV (18:03)
[2021-04-05] MEDS ORDERED: EPOETIN ALFA-EPBX 10,000 UNIT/1ML VIAL SC ONE (21:00)
[2021-04-05] MEDS: ATORVASTATIN 20 MG TAB PO SCH (21:41)
[2021-04-05] MEDS: NORTRIPTYLINE HCL 25 MG CAP PO SCH (21:45)
[2021-04-05 22:00] VITALS: BP 120/52
[2021-04-06 05:00] VITALS: BP 124/58
[2021-04-06] MEDS: TOPIRAMATE 25 MG TAB PO SCH (07:30)
[2021-04-06 09:00] VITALS: BP 96/56
[2021-04-06] MEDS: ASPirin-EC 81 mg tab PO SCH (09:40)
[2021-04-06] MEDS: levoFLOXacin 250 MG TAB PO SCH (09:40)
[2021-04-06] MEDS: CITALOPRAM HYDROBR 20 MG TAB PO SCH (09:40)
[2021-04-06] MEDS: CLOPIDOGREL BISULFATE 75 MG TAB PO SCH (09:40)
[2021-04-06] MEDS: GABAPENTIN 300 MG CAP PO SCH (09:40)
[2021-04-06] MEDS: SEVELAMER 800 MG TAB PO SCH ×3 (09:41→18:42)
[2021-04-06] MEDS: MIDODRINE HCL 10 MG TAB PO SCH ×3 (09:41→16:28)
[2021-04-06 13:00] VITALS: BP 103/51
[2021-04-06 17:00] VITALS: BP 91/56
[2021-04-06] MEDS ORDERED: CLOP75TA28 PO (18:46)
[2021-04-06] MEDS: ATORVASTATIN 20 MG TAB PO SCH (21:38)
[2021-04-06] MEDS: NORTRIPTYLINE HCL 25 MG CAP PO SCH (21:39)
[2021-04-06 22:00] VITALS: BP 116/43
[2021-04-07 05:00] VITALS: BP 99/32
[2021-04-07] MEDS: MIDODRINE HCL 10 MG TAB PO SCH ×3 (05:41→17:57)
[2021-04-07] MEDS ORDERED: SODIUM CHL 0.9% 1000 ML BAG XX ONE (07:00)
[2021-04-07] MEDS ORDERED: ALBUMIN 25% 100 ML IV PRN (07:00)
[2021-04-07] MEDS: SEVELAMER 800 MG TAB PO SCH ×3 (08:16→18:40)
[2021-04-07 09:00] VITALS: BP 121/50
[2021-04-07 09:33] VITALS: BP 121/50
[2021-04-07 13:00] VITALS: BP 102/76
[2021-04-07 16:21] LABS: Basophils # (auto) 0.1 10 ^3/uL (0-0.2); Basophils % (auto) 0.7 % (0.0-2.0); Eosinophils # (auto) 0.3 10 ^3/uL (0-0.8); Eosinophils % (auto) 2.9 % (0.0-7.0); Hematocrit 26.9 % (36.0-46.0); Hemoglobin 8.6 g/dL (12.2-16.2); Lymphocytes # (auto) 1.1 10 ^3/uL (0.4-5.4); Lymphocytes % (auto) 10.3 % (10.0-50.0); Mean Corpuscular Hemoglobin 27.9 pg (28.0-32.0); Mean Corpuscular Volume 87.2 fL (80.0-100.0); Monocytes # (auto) 0.7 10 ^3/uL (0-1.3); Monocytes % (auto) 7.1 % (0.0-12.0); Neutrophils # (auto) 8.2 10 ^3/uL (1.6-8.6); Red Blood Cells 3.08 10^6/uL (4.0-5.20); Red Cell Distribution Width 18.6 % (11.8-14.3); White Blood Cell 10.4 10^3/uL (4.4-10.8)
[2021-04-07 17:00] VITALS: BP 113/72
[2021-04-07] MEDS: CITALOPRAM HYDROBR 20 MG TAB PO SCH (17:56)
[2021-04-07] MEDS: CLOPIDOGREL BISULFATE 75 MG TAB PO SCH (17:57)
[2021-04-07] MEDS: ASPirin-EC 81 mg tab PO SCH (17:57)
[2021-04-07] MEDS: GABAPENTIN 300 MG CAP PO SCH (17:57)
[2021-04-07] MEDS ORDERED: EPOETIN ALFA-EPBX 10,000 UNIT/1ML VIAL SC ONE (21:00)
[2021-04-07] MEDS: ATORVASTATIN 20 MG TAB PO SCH (21:26)
[2021-04-07] MEDS: NORTRIPTYLINE HCL 25 MG CAP PO SCH (21:29)
[2021-04-07 22:00] VITALS: BP 117/62
[2021-04-08 05:00] VITALS: BP 105/59
[2021-04-08] MEDS: MIDODRINE HCL 10 MG TAB PO SCH ×3 (05:26→18:37)
[2021-04-08 09:00] VITALS: BP 131/52
[2021-04-08] MEDS: SEVELAMER 800 MG TAB PO SCH ×3 (09:55→18:37)
[2021-04-08] MEDS: CITALOPRAM HYDROBR 20 MG TAB PO SCH (10:06)
[2021-04-08] MEDS: ASPirin-EC 81 mg tab PO SCH (10:07)
[2021-04-08] MEDS: levoFLOXacin 250 MG TAB PO SCH (10:07)
[2021-04-08] MEDS: GABAPENTIN 300 MG CAP PO SCH (10:07)
[2021-04-08] MEDS: CLOPIDOGREL BISULFATE 75 MG TAB PO SCH (10:08)
[2021-04-08 13:00] VITALS: BP 97/54
[2021-04-08] MEDS: HYDROcodone-ACET 5/325MG TAB PO PRN (14:11)
[2021-04-08 15:10] VITALS: BP 94/46
[2021-04-08 17:00] VITALS: BP 111/44
[2021-04-08] MEDS: NORTRIPTYLINE HCL 25 MG CAP PO SCH (21:35)
[2021-04-08] MEDS: ATORVASTATIN 20 MG TAB PO SCH (21:35)
[2021-04-08 22:00] VITALS: BP 119/51
[2021-04-09 05:00] VITALS: BP 129/55
[2021-04-09] MEDS: MIDODRINE HCL 10 MG TAB PO SCH ×3 (05:16→18:00)
[2021-04-09] MEDS: ASPirin-EC 81 mg tab PO SCH (08:28)
[2021-04-09] MEDS: SEVELAMER 800 MG TAB PO SCH ×3 (08:28→18:00)
[2021-04-09] MEDS: CITALOPRAM HYDROBR 20 MG TAB PO SCH (08:29)
[2021-04-09] MEDS: GABAPENTIN 300 MG CAP PO SCH (08:29)
[2021-04-09] MEDS: CLOPIDOGREL BISULFATE 75 MG TAB PO SCH (08:29)
[2021-04-09 09:00] VITALS: BP 143/74
[2021-04-09] MEDS ORDERED: VANCOMYCIN PER PHARMACY 0 MG IV SCH (11:15)
[2021-04-09] MEDS ORDERED: cefTRIAXone 1GM/50ML D5W 50 ML IV ONE (11:15)
[2021-04-09 13:00] VITALS: BP 145/59
[2021-04-09] MEDS ORDERED: VANCOMYCIN 1GM/250ML 250 ML IV ONE (13:00)
[2021-04-09 17:00] VITALS: BP 131/53
[2021-04-09] MEDS: NORTRIPTYLINE HCL 25 MG CAP PO SCH (21:39)
[2021-04-09] MEDS: ATORVASTATIN 20 MG TAB PO SCH (21:39)
[2021-04-09] MEDS: HYDROcodone-ACET 5/325MG TAB PO PRN (21:39)
[2021-04-09 21:42] VITALS: BP 139/58
[2021-04-10 05:30] VITALS: BP 132/64
[2021-04-10] MEDS: MIDODRINE HCL 10 MG TAB PO SCH ×3 (06:14→18:09)
[2021-04-10] MEDS: SEVELAMER 800 MG TAB PO SCH ×3 (08:00→18:09)
[2021-04-10 09:00] VITALS: BP 151/73
[2021-04-10 09:36] LABS: Basophils # (auto) 0.1 10 ^3/uL (0-0.2); Basophils % (auto) 1.2 % (0.0-2.0); Eosinophils # (auto) 0.3 10 ^3/uL (0-0.8); Eosinophils % (auto) 3.5 % (0.0-7.0); Hematocrit 26.4 % (36.0-46.0); Hemoglobin 8.4 g/dL (12.2-16.2); Lymphocytes % (auto) 11.9 % (10.0-50.0); Mean Corpuscular Hemoglobin 27.9 pg (28.0-32.0); Mean Corpuscular Volume 87.2 fL (80.0-100.0); Monocytes # (auto) 0.6 10 ^3/uL (0-1.3); Monocytes % (auto) 6.4 % (0.0-12.0); Neutrophils # (auto) 6.7 10 ^3/uL (1.6-8.6); Nucleated Red Blood Cells % 0.1 %; Red Blood Cells 3.02 10^6/uL (4.0-5.20); Red Cell Distribution Width 18.4 % (11.8-14.3); White Blood Cell 8.7 10^3/uL (4.4-10.8)
[2021-04-10 09:57] LABS: Calcium 8.8 mg/dL (8.5-10.1); Potassium 3.5 mmol/L (3.5-5.1)
[2021-04-10] MEDS: CLOPIDOGREL BISULFATE 75 MG TAB PO SCH (12:01)
[2021-04-10] MEDS: PANTOPRAZOLE 40 MG TAB PO SCH (12:01)
[2021-04-10] MEDS: GABAPENTIN 300 MG CAP PO SCH (12:01)
[2021-04-10] MEDS: CITALOPRAM HYDROBR 20 MG TAB PO SCH (12:01)
[2021-04-10] MEDS: ASPirin-EC 81 mg tab PO SCH (12:01)
[2021-04-10] MEDS: cefTRIAXone 1GM/50ML D5W 50 ML IV SCH (12:01)
[2021-04-10 13:00] VITALS: BP 142/56
[2021-04-10 14:42] VITALS: BP 142/56
[2021-04-10 17:00] VITALS: BP 118/66
[2021-04-10] MEDS: LINEZOLID 600MG/300ML 300 ML IV SCH (18:09)
[2021-04-10] MEDS: NORTRIPTYLINE HCL 25 MG CAP PO SCH (20:42)
[2021-04-10] MEDS: ATORVASTATIN 20 MG TAB PO SCH (20:48)
[2021-04-10] MEDS: HYDROcodone-ACET 5/325MG TAB PO PRN (20:49)
[2021-04-10] MEDS ORDERED: EPOETIN ALFA-EPBX 10,000 UNIT/1ML VIAL IV ONE (21:00)
[2021-04-10 22:00] VITALS: BP 140/50
[2021-04-11] MEDS: LINEZOLID 600MG/300ML 300 ML IV SCH ×2 (00:10→13:03)
[2021-04-11 05:00] VITALS: BP 129/66
[2021-04-11] MEDS: MIDODRINE HCL 10 MG TAB PO SCH ×3 (05:39→18:18)
[2021-04-11 07:14] LABS: Basophils # (auto) 0.1 10 ^3/uL (0-0.2); Basophils % (auto) 0.7 % (0.0-2.0); Eosinophils # (auto) 0.3 10 ^3/uL (0-0.8); Eosinophils % (auto) 3.3 % (0.0-7.0); Hematocrit 26.6 % (36.0-46.0); Hemoglobin 8.6 g/dL (12.2-16.2); Lymphocytes # (auto) 1.7 10 ^3/uL (0.4-5.4); Lymphocytes % (auto) 19.3 % (10.0-50.0); Mean Corpuscular Hemoglobin 28.1 pg (28.0-32.0); Mean Corpuscular Hgb Conc. 32.3 g/dL (32.0-36.0); Mean Corpuscular Volume 87.1 fL (80.0-100.0); Monocytes # (auto) 0.8 10 ^3/uL (0-1.3); Monocytes % (auto) 8.5 % (0.0-12.0); Neutrophils # (auto) 6.2 10 ^3/uL (1.6-8.6); Neutrophils % (auto) 68.2 % (37.0-80.0); Nucleated Red Blood Cells % 0.1 %; Red Blood Cells 3.05 10^6/uL (4.0-5.20); Red Cell Distribution Width 18.6 % (11.8-14.3); White Blood Cell 9.1 10^3/uL (4.4-10.8)
[2021-04-11 07:38] LABS: Potassium 4.2 mmol/L (3.5-5.1)
[2021-04-11 07:44] LABS: Albumin 3.1 g/dL (3.4-5.0); BUN/Creatinine Ratio 5.1; Bilirubin, Total 0.6 mg/dL (0.2-1.0); Calcium 8.9 mg/dL (8.5-10.1); Total Protein 6.4 g/dL (6.4-8.2)
[2021-04-11] MEDS: SEVELAMER 800 MG TAB PO SCH ×3 (08:30→18:19)
[2021-04-11 09:00] VITALS: BP 141/47
[2021-04-11] MEDS: PANTOPRAZOLE 40 MG TAB PO SCH (09:22)
[2021-04-11] MEDS: CLOPIDOGREL BISULFATE 75 MG TAB PO SCH (09:22)
[2021-04-11] MEDS: GABAPENTIN 300 MG CAP PO SCH (09:22)
[2021-04-11] MEDS: ASPirin-EC 81 mg tab PO SCH (09:22)
[2021-04-11] MEDS: CITALOPRAM HYDROBR 20 MG TAB PO SCH (09:22)
[2021-04-11] MEDS: cefTRIAXone 1GM/50ML D5W 50 ML IV SCH (09:23)
[2021-04-11 13:00] VITALS: BP 153/50
[2021-04-11 16:38] VITALS: BP 153/50
[2021-04-11 17:00] VITALS: BP 127/68
[2021-04-12] MEDS ORDERED: SODIUM CHL 0.9% 1000 ML BAG XX ONE (07:00)
[2021-04-12] MEDS ORDERED: EPOETIN ALFA-EPBX 10,000 UNIT/1ML VIAL SC ONE (21:00)
== END 2021-04-11 20:07 | DRG 280 ==
LOC: ER 05:40 → EDBD 05:40 → TELE 13:55 → TELE-EAST 17:25
PROVIDERS: ADMIT Internal Medicine; ATTEND Internal Medicine
PROC: 5A1D70Z Performance of Urinary Filtration, Intermittent, Less than 6 Hours Per Day (ICD-10-PCS; 2021-04-01)
PROC: 4A023N7 Measurement of Cardiac Sampling and Pressure, Left Heart, Percutaneous Approach (ICD-10-PCS; principal; 2021-04-02)
PROC: B211YZZ Fluoroscopy of Multiple Coronary Arteries using Other Contrast (ICD-10-PCS; 2021-04-02)
PROC: 5A1D70Z Performance of Urinary Filtration, Intermittent, Less than 6 Hours Per Day (ICD-10-PCS; 2021-04-03)
PROC: 5A1D70Z Performance of Urinary Filtration, Intermittent, Less than 6 Hours Per Day (ICD-10-PCS; 2021-04-05)
PROC: 5A1D70Z Performance of Urinary Filtration, Intermittent, Less than 6 Hours Per Day (ICD-10-PCS; 2021-04-08)
PROC: 5A1D70Z Performance of Urinary Filtration, Intermittent, Less than 6 Hours Per Day (ICD-10-PCS; 2021-04-10)
DX: I21.4 Non-ST elevation (NSTEMI) myocardial infarction (principal); N18.6 End stage renal disease; J96.01 Acute respiratory failure with hypoxia; J69.0 Pneumonitis due to inhalation of food and vomit; J15.212 Pneumonia due to Methicillin resistant Staphylococcus aureus; I50.43 Acute on chronic combined systolic (congestive) and diastolic (congestive) heart failure; I13.0 Hypertensive heart and chronic kidney disease with heart failure and stage 1 through stage 4 chronic kidney disease, or unspecified chronic kidney disease; J98.11 Atelectasis; J44.0 Chronic obstructive pulmonary disease with (acute) lower respiratory infection; I42.9 Cardiomyopathy, unspecified; Z99.2 Dependence on renal dialysis; D63.1 Anemia in chronic kidney disease; E66.9 Obesity, unspecified; I25.10 Atherosclerotic heart disease of native coronary artery without angina pectoris; Z20.822 Contact with and (suspected) exposure to COVID-19; I95.9 Hypotension, unspecified; I44.7 Left bundle-branch block, unspecified; E78.5 Hyperlipidemia, unspecified; R53.81 Other malaise; Z90.49 Acquired absence of other specified parts of digestive tract; Z98.51 Tubal ligation status; Z95.5 Presence of coronary angioplasty implant and graft
CPT/HCPCS: 36415; 36600; 71045; 71275; 80048; 80053; 80202; 82565; 82805; 82962; 83605; 83735; 83880; 84132; 84443; 84484; 85014; 85018; 85025; 85049; 85379; 85610; 85730; 86141; 86850; 86900; 86901; 87040; 87070; 87077; 87081; 87186; 87205; 87426; 90935; 92610; 93005; 93458; 93970; 96360; 96361; 97110; 97163; 97530; 99152; G0378; J0696; J1642; J2250; P9047; Q9967

== ENCOUNTER 2021-05-02 11:59 | Inpatient (IN) | payer MEDICARE, MEDICAID ==
[~2021-05-02] VITALS: Ht 157.5 cm; Wt 90.6 kg
[~2021-05-02 11:59] MED LIST changes: +CITA-73 PO; +CLOP75TA28 PO; -LOSA25TA38 PO; -METO25TA93 PO; +OXYB5TAB61 GT; -ZOLP10TA PO
[2021-05-02] MEDS ORDERED: PIPERACILLIN-TAZOB 3.375GM 100 ML IV ONE (13:15)
[2021-05-02 14:19] LABS: Basophils # (auto) 0 10 ^3/uL (0-0.2); Basophils % (auto) 0.1 % (0.0-2.0); Eosinophils # (auto) 0 10 ^3/uL (0-0.8); Eosinophils % (auto) 0.1 % (0.0-7.0); Hematocrit 14.7 % (36.0-46.0); Lymphocytes # (auto) 0.6 10 ^3/uL (0.4-5.4); Lymphocytes % (auto) 3.5 % (10.0-50.0); Mean Corpuscular Hemoglobin 31.2 pg (28.0-32.0); Mean Corpuscular Hgb Conc. 31.6 g/dL (32.0-36.0); Mean Corpuscular Volume 98.7 fL (80.0-100.0); Monocytes # (auto) 1.1 10 ^3/uL (0-1.3); Monocytes % (auto) 6.2 % (0.0-12.0); Neutrophils % (auto) 90.1 % (37.0-80.0); Red Blood Cells 1.48 10^6/uL (4.0-5.20); White Blood Cell 17.7 10^3/uL (4.4-10.8)
[2021-05-02 14:33] LABS: Hemoglobin 4.6 g/dL (12.2-16.2); Lactic Acid w/Reflex 6.4 mmol/L (0.4-2.0); Red Cell Distribution Width 23.1 % (11.8-14.3)
[2021-05-02] MEDS ORDERED: ONDANSETRON HCL 4 MG/2 ML VIAL IV PRN (15:15)
[2021-05-02] MEDS ORDERED: VANCOMYCIN PER PHARMACY 0 MG IV SCH (15:15)
[2021-05-02] MEDS ORDERED: ACETAMINOPHEN 500 MG TAB PO PRN (15:15)
[2021-05-02] MEDS ORDERED: ACETAMINOPHEN 325 MG TAB PO ONE (15:15)
[2021-05-02] MEDS ORDERED: MORPHINE SULFATE INJECTION 2 MG/ML SYRG IV PRN ×2 (15:15)
[2021-05-02] MEDS ORDERED: NITROGLYCERIN 0.4 MG SL TAB SL PRN (15:15)
[2021-05-02 15:32] LABS: Albumin 2.4 g/dL (3.4-5.0); Calcium 7.4 mg/dL (8.5-10.1); Potassium 5.4 mmol/L (3.5-5.1)
[2021-05-02 15:35] LABS: Bilirubin, Total 0.6 mg/dL (0.2-1.0); Total Protein 5.6 g/dL (6.4-8.2)
[2021-05-02] MEDS ORDERED: PANTOPRAZOLE 40 MG TAB PO ONE (15:46)
[2021-05-02] MEDS ORDERED: VANCOMYCIN 1GM/250ML 250 ML IV ONE (17:00)
[2021-05-02 19:15] LABS: INR 1.34 (0.9-1.15); Partial Thromboplastin Time 25.2 sec (23.6-33.0)
[2021-05-02 19:26] LABS: Folate (Folic Acid) > 24.00 ng/mL (5.38-24)
[2021-05-02 21:33] VITALS: BP 126/46
[2021-05-02 21:45] VITALS: BP 112/33
[2021-05-02 22:00] VITALS: BP 115/32
[2021-05-02 22:15] VITALS: BP 108/32
[2021-05-02 22:45] VITALS: BP 107/35
[2021-05-02] MEDS: SODIUM ZIRCONIUM CYCL 10 GM PAK PO SCH ×2 (22:48→22:49)
[2021-05-02] MEDS: SEVELAMER 800 MG TAB PO SCH (22:48)
[2021-05-02 23:05] VITALS: BP 116/35
[2021-05-02 23:07] LABS: Urine Bacteria NONE SEEN /hpf (None Seen); Urine Blood Negative /uL (Negative); Urine Specific Gravity 1.014 (1.001-1.035); Urine WBC 7 /hpf (0 - 5)
[2021-05-03] VITALS (8 sets, daily range): BP systolic 107–155; BP diastolic 33–62
[2021-05-03] MEDS: PIPERACILLIN-TAZOB 2.25GM 50 ML IV SCH ×4 (04:30→19:15)
[2021-05-03] MEDS: SODIUM ZIRCONIUM CYCL 10 GM PAK PO SCH ×3 (06:24→22:00)
[2021-05-03] MEDS ORDERED: SODIUM CHL 0.9% 1000 ML BAG XX ONE (07:00)
[2021-05-03 07:33] LABS: Albumin 2.3 g/dL (3.4-5.0); Basophils # (auto) 0.1 10 ^3/uL (0-0.2); Basophils % (auto) 0.6 % (0.0-2.0); Calcium 7.4 mg/dL (8.5-10.1); Lymphocytes # (auto) 0.8 10 ^3/uL (0.4-5.4); Monocytes # (auto) 0.5 10 ^3/uL (0-1.3); Potassium 4.6 mmol/L (3.5-5.1); Red Blood Cells 2.26 10^6/uL (4.0-5.20)
[2021-05-03 07:34] LABS: % Iron Saturation 22.6 % (15-50)
[2021-05-03 07:36] LABS: Eosinophils # (auto) 0.2 10 ^3/uL (0-0.8); Eosinophils % (auto) 1.9 % (0.0-7.0); Hemoglobin 7.2 g/dL (12.2-16.2); Lymphocytes % (auto) 6.7 % (10.0-50.0); Mean Corpuscular Hgb Conc. 34.4 g/dL (32.0-36.0); Monocytes % (auto) 4.5 % (0.0-12.0); Neutrophils # (auto) 9.9 10 ^3/uL (1.6-8.6); Neutrophils % (auto) 86.3 % (37.0-80.0); Nucleated Red Blood Cells % 0.2 %; Red Cell Distribution Width 17.8 % (11.8-14.3); White Blood Cell 11.5 10^3/uL (4.4-10.8)
[2021-05-03 07:42] LABS: Bilirubin, Total 0.5 mg/dL (0.2-1.0); Total Protein 5.6 g/dL (6.4-8.2)
[2021-05-03] MEDS: SEVELAMER 800 MG TAB PO SCH ×3 (08:00→18:13)
[2021-05-03] MEDS: PANTOPRAZOLE 40 MG TAB PO SCH (09:14)
[2021-05-03] MEDS: GABAPENTIN 300 MG CAP PO SCH (09:14)
[2021-05-03] MEDS ORDERED: CATHFLO ACTIVASE (ALTEPLASE) 2 MG VIAL IV ONE (14:45)
[2021-05-03] MEDS ORDERED: VANCOMYCIN 1GM/250ML 250 ML IV ONE (19:00)
[2021-05-03] MEDS ORDERED: D5W 5% 1,000 ML IV SCH (20:15)
[2021-05-03] MEDS ORDERED: EPOETIN ALFA-EPBX 10,000 UNIT/1ML VIAL SC ONE (21:00)
[2021-05-03] MEDS: TOPIRAMATE 25 MG TAB PO SCH (22:00)
[2021-05-04] MEDS ORDERED: SODIUM CHL 0.9% 1000 ML BAG XX ONE (01:15)
[2021-05-04 02:23] VITALS: BP 112/47
[2021-05-04 02:40] VITALS: BP 121/47
[2021-05-04 03:15] VITALS: BP 123/49
[2021-05-04 04:20] VITALS: BP 128/53
[2021-05-04 05:02] LABS: Basophils # (auto) 0.1 10 ^3/uL (0-0.2); Basophils % (auto) 0.9 % (0.0-2.0); Eosinophils # (auto) 0.3 10 ^3/uL (0-0.8); Eosinophils % (auto) 3.4 % (0.0-7.0); Hematocrit 25.6 % (36.0-46.0); Hemoglobin 8.8 g/dL (12.2-16.2); Lymphocytes # (auto) 0.5 10 ^3/uL (0.4-5.4); Lymphocytes % (auto) 5.5 % (10.0-50.0); Mean Corpuscular Hemoglobin 31.8 pg (28.0-32.0); Mean Corpuscular Hgb Conc. 34.4 g/dL (32.0-36.0); Mean Corpuscular Volume 92.5 fL (80.0-100.0); Monocytes # (auto) 0.4 10 ^3/uL (0-1.3); Monocytes % (auto) 4.7 % (0.0-12.0); Neutrophils # (auto) 7.3 10 ^3/uL (1.6-8.6); Neutrophils % (auto) 85.5 % (37.0-80.0); Nucleated Red Blood Cells % 0.1 %; Red Blood Cells 2.77 10^6/uL (4.0-5.20); Red Cell Distribution Width 17.8 % (11.8-14.3); White Blood Cell 8.5 10^3/uL (4.4-10.8)
[2021-05-04 05:14] LABS: INR 1.19 (0.9-1.15)
[2021-05-04 05:15] LABS: Albumin 2.6 g/dL (3.4-5.0); Calcium 7.6 mg/dL (8.5-10.1); Magnesium 2.3 mg/dL (1.6-2.6)
[2021-05-04 05:24] LABS: BUN/Creatinine Ratio 10.5; Bilirubin, Total 0.9 mg/dL (0.2-1.0); Phosphorus 2.4 mg/dL (2.5-4.90); Total Protein 6.3 g/dL (6.4-8.2)
[2021-05-04 05:31] LABS: Potassium 2.9 mmol/L (3.5-5.1)
[2021-05-04] MEDS: SODIUM ZIRCONIUM CYCL 10 GM PAK PO SCH (06:00)
[2021-05-04] MEDS: PIPERACILLIN-TAZOB 2.25GM 50 ML IV SCH ×3 (06:06→20:19)
[2021-05-04] MEDS: POTASSIUM CHL 20MEQ/100ML 100 ML IV SCH ×2 (08:25→12:00)
[2021-05-04] MEDS: SEVELAMER 800 MG TAB PO SCH ×3 (09:13→19:57)
[2021-05-04] MEDS ORDERED: OXYBUTYNIN CHL 5 MG TAB PO SCH (10:00)
[2021-05-04] MEDS: CITALOPRAM HYDROBR 20 MG TAB PO SCH (10:17)
[2021-05-04] MEDS: GABAPENTIN 300 MG CAP PO SCH (10:17)
[2021-05-04] MEDS: TOPIRAMATE 25 MG TAB PO SCH ×2 (10:17→21:39)
[2021-05-04] MEDS: B-COMPLEX W/ C & FOLIC ACID(NEPHROVITE TAB) PO SCH (10:17)
[2021-05-04] MEDS: PANTOPRAZOLE 40 MG TAB PO SCH (10:18)
[2021-05-04] MEDS: HEPARIN SODIUM (PORCINE) 5000 UNITS/ML 1ML VIAL SC SCH ×2 (11:27→21:44)
[2021-05-04] MEDS ORDERED: POTASSIUM CHL 20MEQ/50ML 50 ML IV ONE (11:31)
[2021-05-04] MEDS ORDERED: METOCLOPRAMIDE HCL 5MG/ml INJ 2ml VIAL IV ONE (15:00)
[2021-05-04] MEDS ORDERED: VANCOMYCIN 1GM/250ML 250 ML IV ONE (17:00)
[2021-05-04] MEDS: HYDROcodone-ACET 5/325MG TAB PO PRN (19:58)
[2021-05-05] MEDS: PIPERACILLIN-TAZOB 2.25GM 50 ML IV SCH ×3 (03:25→20:10)
[2021-05-05 04:53] LABS: Basophils # (auto) 0.1 10 ^3/uL (0-0.2); Basophils % (auto) 0.8 % (0.0-2.0); Eosinophils # (auto) 0.4 10 ^3/uL (0-0.8); Eosinophils % (auto) 4.2 % (0.0-7.0); Hematocrit 23.6 % (36.0-46.0); Hemoglobin 8.2 g/dL (12.2-16.2); Lymphocytes # (auto) 0.9 10 ^3/uL (0.4-5.4); Lymphocytes % (auto) 11.2 % (10.0-50.0); Mean Corpuscular Hemoglobin 32.2 pg (28.0-32.0); Mean Corpuscular Hgb Conc. 34.6 g/dL (32.0-36.0); Monocytes # (auto) 0.7 10 ^3/uL (0-1.3); Monocytes % (auto) 7.7 % (0.0-12.0); Neutrophils # (auto) 6.4 10 ^3/uL (1.6-8.6); Neutrophils % (auto) 76.1 % (37.0-80.0); Nucleated Red Blood Cells % 0.1 %; Red Blood Cells 2.54 10^6/uL (4.0-5.20); Red Cell Distribution Width 18.7 % (11.8-14.3); White Blood Cell 8.4 10^3/uL (4.4-10.8)
[2021-05-05 05:17] LABS: BUN/Creatinine Ratio 8.3; Calcium 7.8 mg/dL (8.5-10.1)
[2021-05-05] MEDS: SEVELAMER 800 MG TAB PO SCH ×4 (08:00→19:30)
[2021-05-05] MEDS: PANTOPRAZOLE 40 MG TAB PO SCH (11:00)
[2021-05-05] MEDS: CITALOPRAM HYDROBR 20 MG TAB PO SCH (11:00)
[2021-05-05] MEDS: HEPARIN SODIUM (PORCINE) 5000 UNITS/ML 1ML VIAL SC SCH ×2 (11:00→21:12)
[2021-05-05] MEDS: GABAPENTIN 300 MG CAP PO SCH (11:00)
[2021-05-05] MEDS: B-COMPLEX W/ C & FOLIC ACID(NEPHROVITE TAB) PO SCH (11:00)
[2021-05-05 18:50] VITALS: BP 137/65
[2021-05-05 22:00] VITALS: BP 140/66
[2021-05-05 22:30] VITALS: BP 140/66
[2021-05-05] MEDS: HYDROcodone-ACET 5/325MG TAB PO PRN (23:16)
[2021-05-06] MEDS: PIPERACILLIN-TAZOB 2.25GM 50 ML IV SCH ×2 (02:45→11:15)
[2021-05-06 05:00] VITALS: BP 105/51
[2021-05-06 05:43] LABS: Basophils # (auto) 0.1 10 ^3/uL (0-0.2); Basophils % (auto) 0.8 % (0.0-2.0); Eosinophils # (auto) 0.4 10 ^3/uL (0-0.8); Eosinophils % (auto) 4.3 % (0.0-7.0); Hematocrit 24.7 % (36.0-46.0); Hemoglobin 8.7 g/dL (12.2-16.2); Lymphocytes % (auto) 11.5 % (10.0-50.0); Mean Corpuscular Hemoglobin 32.9 pg (28.0-32.0); Mean Corpuscular Hgb Conc. 35.1 g/dL (32.0-36.0); Mean Corpuscular Volume 93.6 fL (80.0-100.0); Monocytes # (auto) 0.8 10 ^3/uL (0-1.3); Monocytes % (auto) 9.2 % (0.0-12.0); Neutrophils # (auto) 6.7 10 ^3/uL (1.6-8.6); Neutrophils % (auto) 74.2 % (37.0-80.0); Nucleated Red Blood Cells % 0.1 %; Red Blood Cells 2.64 10^6/uL (4.0-5.20)
[2021-05-06 06:07] LABS: Albumin 2.2 g/dL (3.4-5.0); Potassium 4.3 mmol/L (3.5-5.1)
[2021-05-06 06:15] LABS: BUN/Creatinine Ratio 7.7; Bilirubin, Total 0.9 mg/dL (0.2-1.0); Total Protein 5.3 g/dL (6.4-8.2)
[2021-05-06 09:00] VITALS: BP 120/49
[2021-05-06] MEDS: GABAPENTIN 300 MG CAP PO SCH (10:00)
[2021-05-06] MEDS: HEPARIN SODIUM (PORCINE) 5000 UNITS/ML 1ML VIAL SC SCH (10:00)
[2021-05-06] MEDS: PANTOPRAZOLE 40 MG TAB PO SCH (10:00)
[2021-05-06] MEDS: CITALOPRAM HYDROBR 20 MG TAB PO SCH (10:00)
[2021-05-06] MEDS: B-COMPLEX W/ C & FOLIC ACID(NEPHROVITE TAB) PO SCH (10:00)
[2021-05-06] MEDS: HYDROcodone-ACET 5/325MG TAB PO PRN (11:30)
[2021-05-06 12:38] VITALS: BP 128/76
[2021-05-06 15:41] VITALS: BP 123/72
[2021-05-07] MEDS ORDERED: CLOPIDOGREL BISULFATE 75 MG TAB PO SCH (10:00)
== END 2021-05-06 18:00 | disposition home or self-care (01) | DRG 862 ==
LOC: ER 11:59 → EDBD 11:59 → DOU 15:03 → TELE 05-03 08:32 → TELE-CENTR 05-05 18:43
PROVIDERS: ADMIT Nurse Practitioner Acute Care; ATTEND Internal Medicine Pulmonary Disease
PROC: 30233N1 Transfusion of Nonautologous Red Blood Cells into Peripheral Vein, Percutaneous Approach (ICD-10-PCS; principal; 2021-05-02)
PROC: 5A1D70Z Performance of Urinary Filtration, Intermittent, Less than 6 Hours Per Day (ICD-10-PCS; 2021-05-03)
PROC: 5A1D70Z Performance of Urinary Filtration, Intermittent, Less than 6 Hours Per Day (ICD-10-PCS; 2021-05-04)
DX: T81.49XA Infection following a procedure, other surgical site, initial encounter (principal); A41.9 Sepsis, unspecified organism; I21.4 Non-ST elevation (NSTEMI) myocardial infarction; J96.01 Acute respiratory failure with hypoxia; G93.41 Metabolic encephalopathy; I50.43 Acute on chronic combined systolic (congestive) and diastolic (congestive) heart failure; N18.6 End stage renal disease; K72.00 Acute and subacute hepatic failure without coma; R57.1 Hypovolemic shock; R65.20 Severe sepsis without septic shock; I13.2 Hypertensive heart and chronic kidney disease with heart failure and with stage 5 chronic kidney disease, or end stage renal disease; L03.116 Cellulitis of left lower limb; D63.8 Anemia in other chronic diseases classified elsewhere; Z99.2 Dependence on renal dialysis; I25.10 Atherosclerotic heart disease of native coronary artery without angina pectoris; E66.01 Morbid (severe) obesity due to excess calories; Z68.36 Body mass index [BMI] 36.0-36.9, adult; E11.22 Type 2 diabetes mellitus with diabetic chronic kidney disease; E78.5 Hyperlipidemia, unspecified; E87.5 Hyperkalemia; I25.2 Old myocardial infarction; J44.9 Chronic obstructive pulmonary disease, unspecified; Z79.02 Long term (current) use of antithrombotics/antiplatelets; Z79.899 Other long term (current) drug therapy; Z80.1 Family history of malignant neoplasm of trachea, bronchus and lung; Z80.3 Family history of malignant neoplasm of breast; Z82.49 Family history of ischemic heart disease and other diseases of the circulatory system; Z90.49 Acquired absence of other specified parts of digestive tract; F41.9 Anxiety disorder, unspecified; F32.9 Major depressive disorder, single episode, unspecified; E11.40 Type 2 diabetes mellitus with diabetic neuropathy, unspecified; I25.5 Ischemic cardiomyopathy; E11.65 Type 2 diabetes mellitus with hyperglycemia; Z95.2 Presence of prosthetic heart valve; Z20.822 Contact with and (suspected) exposure to COVID-19
CPT/HCPCS: 36415; 51702; 70450; 71045; 73700; 74176; 80048; 80053; 80202; 81001; 82306; 82550; 82607; 82728; 82746; 82962; 83540; 83550; 83605; 83735; 83880; 83970; 84100; 84443; 84484; 85025; 85610; 85730; 86850; 86900; 86901; 86920; 87040; 87081; 87086; 87205; 87426; 90935; 93005; 96365; 96366; 99291; G0378; J1642; J2543; J3480

== ENCOUNTER 2021-05-12 08:33 | Emergency (ER) | payer MEDICARE, MEDICAID ==
[~2021-05-12] VITALS: Ht 165.1 cm; Wt 81.6 kg
[~2021-05-12 08:33] MED LIST changes: -ASPI-394 PO; -ATOR-47 PO; -CITA-73 PO; -ESCI-34 PO; -NORT50CA57 PO; -OXYB5TAB61 GT; -TOPI25CA5 PO
[2021-05-12] MEDS ORDERED: HYDROcodone-ACET 5/325MG TAB PO ONE (10:15)
[2021-05-12 12:21] VITALS: BP 134/46
== END 2021-05-12 13:19 | disposition home or self-care (01) ==
LOC: ER 08:33 → EDUNIT# 08:33 → EDBD 08:33 → ER 12:15
DX: S05.11XA Contusion of eyeball and orbital tissues, right eye, initial encounter (principal); I13.0 Hypertensive heart and chronic kidney disease with heart failure and stage 1 through stage 4 chronic kidney disease, or unspecified chronic kidney disease; E11.22 Type 2 diabetes mellitus with diabetic chronic kidney disease; N18.9 Chronic kidney disease, unspecified; I50.9 Heart failure, unspecified; J44.9 Chronic obstructive pulmonary disease, unspecified; E78.5 Hyperlipidemia, unspecified; I25.2 Old myocardial infarction; Z90.49 Acquired absence of other specified parts of digestive tract; Z90.89 Acquired absence of other organs; Z79.82 Long term (current) use of aspirin; Z79.01 Long term (current) use of anticoagulants; Z79.899 Other long term (current) drug therapy; W06.XXXA Fall from bed, initial encounter; Y93.89 Activity, other specified; Y92.89 Other specified places as the place of occurrence of the external cause; Y99.8 Other external cause status
CPT/HCPCS: 70450; 70486; 72125; 93005

== ENCOUNTER 2021-05-14 01:20 | Emergency (ER) | payer MEDICARE, MEDICAID ==
[~2021-05-14] VITALS: Ht 180.3 cm; Wt 113.4 kg
== END 2021-05-14 05:26 ==
LOC: EDBD 01:20 → ER 01:24
DX: I46.9 Cardiac arrest, cause unspecified (principal); I13.2 Hypertensive heart and chronic kidney disease with heart failure and with stage 5 chronic kidney disease, or end stage renal disease; E11.22 Type 2 diabetes mellitus with diabetic chronic kidney disease; N18.6 End stage renal disease; I50.9 Heart failure, unspecified; J44.9 Chronic obstructive pulmonary disease, unspecified; E78.5 Hyperlipidemia, unspecified; I25.2 Old myocardial infarction; Z90.49 Acquired absence of other specified parts of digestive tract; Z90.89 Acquired absence of other organs; Z79.01 Long term (current) use of anticoagulants; Z79.899 Other long term (current) drug therapy
CPT/HCPCS: 31500; 92950